=== PATIENT | female | born 1945 | race Caucasian/White ===

== ENCOUNTER 2019-12-02 12:06 | Inpatient (IN) | payer BC, MEDICARE ==
--- NOTE | 2019-12-02 13:19 | XR ---
EXAMINATION TYPE: XR chest 1V portable DATE OF EXAM: 12/02/2019 COMPARISON: NONE HISTORY: Pain and swelling with possible infection TECHNIQUE: Single frontal view of the chest is obtained. FINDINGS: Interstitium is coarsened. Arthropathy of the shoulders. Biapical pleural thickening. Hype rtrophic and degenerative change of the spine. No consolidation. No sizable pleural effusion or pneum othorax. Hyperinflation compatible COPD IMPRESSION: Coarsened interstitium suspect is related to chronic interstitial pulmonary lung disease such as fibrosis. Correlate clinically to exclude interstitial pneumonitis or bronchitis.
[2019-12-02 13:36] LABS: Basophils # (A) 0.1 k/uL (0-0.2); Basophils % (A) 0 %; Eosinophils # (A) 0.3 k/uL (0-0.7); Eosinophils % (A) 2 %; HCT 46.3 % (34.0-46.0); Lymphocytes # (A) 2.6 k/uL (1.0-4.8); Lymphocytes % (A) 20 %; MCH 29.7 pg (25.0-35.0); MCHC 32.5 g/dL (31.0-37.0); MCV 91.7 fL (80.0-100.0); Mean Platelet Volume 8.1; Monocytes # (A) 0.6 k/uL (0-1.0); Monocytes % (A) 5 %; Neutrophils # (A) 9.1 k/uL (1.3-7.7); Neutrophils % (A) 71 %; Platelet Count 239 k/uL (150-450); RBC 5.05 m/uL (3.80-5.40); RDW 13.1 % (11.5-15.5); WBC 12.8 k/uL (3.8-10.6)
[2019-12-02 13:37] LABS: Appearance,Urine Clear (Clear); Bacteria,Urine Occasional /hpf; Bilirubin,Urine Negative (Negative); Blood,Urine Trace (Negative); Color,Urine Light Yellow; Glucose,Urine (UA) 3+ (Negative); Ketones,Urine Negative (Negative); Leukocyte Esterase,Urine Negative (Negative); Nitrite,Urine Negative (Negative); PH, Urine 6.5 (5.0-8.0); Protein,Urine 2+ (Negative); RBC,Urine 1 /hpf (0-5); Specific Gravity,Urine 1.008 (1.001-1.035); Squamous Epithelial Cell,Urine 1 /hpf (0-4); Urobilinogen,Urine <2.0 mg/dL (<2.0); WBC,Urine 1 /hpf (0-5)
--- NOTE | 2019-12-02 13:38 | ED ---
General Adult HPI - General Chief complaint: Wound/Laceration Stated complaint: L Toe Infection Time Seen by Provider: 12/02/19 12:56 Source: patient Mode of arrival: wheelchair Limitations: no limitations - History of Present Illness Initial comments: Dictation was produced using [employer] dictation software. please excuse any grammatical, word or spelling errors. Chief Complaint: 74-year-old female sent in by occupational therapist rehab manager for left foot i nfection. History of Present Illness: Patient is a 4-year-old female she was advised by her occupational therapist rehab manager today. She is told that she was having a draining wound to her left great toe consent to the emergency department for concerns of infection. Patient states she's been having increased pain to her left foot. Patient denies ever been diagnosed with vascular disease. She does have a history of diabetes. Patient denies any shortness breath, chest pain or abdominal pain. No nausea or vomiting. He has any constitutional symptoms. Patient complains of pain especially to her left great toe extending up to her mid calf region. She denies any numbness and paresthesias to the extremities. The ROS documented in this emergency department record has been reviewed and confirmed by me. Those systems with pertinent positive or negative responses have been documented in the HPI. All other systems are other negative and/or noncontributory. PHYSICAL EXAM: General Impression: Alert and oriented x3, not in acute distress HEENT: Normocephalic atraumatic, extra-ocular movements intact, pupils equal and reactive to light bilaterally, mucous membranes moist. Cardiovascular: Heart regular rate and rhythm, S1&S2 audible, no murmurs, rubs or gallops Chest: Lungs clear to auscultation bilaterally, no rhonchi, no wheeze, no rales Abdomen: Bowel sounds present, abdomen soft, non-tender, non-distended, no organomegaly Musculoskeletal: Pulses present and equal in all extremities, no peripheral edema Motor: no focal deficits noted Neurological: CN II-XII grossly intact, no focal motor or sensory deficits noted Left foot: No petechial diarrhea, very weakly palpable DP and PT pulse. Multip le callouses. There is a 0.5 x 0.5 cm wound to the medial left great toe with very slight drainage. Her whole foot is tender to palpation. Skin: Intact with no visualized rashes Psych: Normal affect and mood ED course: 74-year-old female presents with left foot pain. She sent in by her occupational therapist rehab manager for concerns of worsening infection. As upon arrival shows heart rate of 11, respiratory signs within acceptable limits. Laboratory evaluation obtained. Leukocytosis 12.8. Metabolic panel is within acceptable limits. Urinalysis shows 3+ glucose. Chest x-ray shows no acute processes. Radiology made a comment on coarse interstitium. Patient does not have any respiratory symptoms today. Further x-ray was obtained concerning for osteomyelitis. Patient started on vancomycin and cefepime. Patient be admitted to Dr. Ortega with consultation to infectious disease and vascular surgery. P atient agreeable to disposition. EKG interpretation: Ventricular rate 96, normal sinus rhythm, SC interval 140, QRS 92, QTC 480. No SC prolongation, no QTC prolongation, no ST or T-wave changes noted. Overall, this EKG is unremarkable - Related Data Home Medications Medication Instructions Recorded Confirmed Lisinopril [Zestril] 10 mg PO DAILY 04/25/16 12/02/19 Insulin Glargine,Hum.rec.anlog 15 units SQ DAILY 12/02/19 12/02/19 [Toukaitlin Solostar] Allergies Allergy/AdvReac Type Severity Reaction Status Date / Time Penicillins Allergy Unknown Verified 12/02/19 14:24 Review of Systems ROS Statement: Those systems with pertinent positive or pertinent negative responses have been documented in the HPI. ROS Other: All systems not noted in ROS Statement are negative. Past Medical History Past Medical History: CVA/TIA, Diabetes Mellitus, Hyperlipidemia, Hypertension Additional Past Medical History / Comment(s): COLITIS History of Any Multi-Drug Resistant Organisms: None Reported Past Surgical History: Cholecystectomy, Hysterectomy, Tonsillectomy Additional Past Surgical History / Comment(s): Left femoral stent. Past Psychological History: No Psychological Hx Reported Smoking Status: Current every day smoker Past Alcohol Use History: None Reported Past Drug Use History: Marijuana General Exam Limitations: no limitations Course Vital Signs 12/02/19 12:29 Temperature 98.1 F Pulse Rate 101 H Respiratory 16 Rate Blood Pressure 174/82 O2 Sat by Pulse 97 Oximetry Medical Decision Making - Lab Data Result diagrams: 12/02/19 13:20 12/02/19 13:20 Lab Results 12/02/19 12/02/19 12/02/19 Range/Units 13:20 13:20 13:20 WBC 12.8 H (3.8-10.6) k/uL RBC 5.05 (3.80-5.40) m/uL Hgb 15.0 (11.4-16.0) gm/dL Hct 46.3 H (34.0-46.0) % MCV 91.7 (80.0-100.0) fL MCH 29.7 (25.0-35.0) pg MCHC 32.5 (31.0-37.0) g/dL RDW 13.1 (11.5-15.5) % Plt Count 239 (150-450) k/uL Neutrophils % 71 % Lymphocytes % 20 % Monocytes % 5 % Eosinophils % 2 % Basophils % 0 % Neutrophils # 9.1 H (1.3-7.7) k/uL Lymphocytes # 2.6 (1.0-4.8) k/uL Monocytes # 0.6 (0-1.0) k/uL Eosinophils # 0.3 (0-0.7) k/uL Basophils # 0.1 (0-0.2) k/uL Sodium 135 L (137-145) mmol/L Potassium 4.2 (3.5-5.1) mmol/L Chloride 100 (98-107) mmol/L Carbon Dioxide 29 (22-30) mmol/L Anion Gap 6 mmol/L BUN 26 H (7-17) mg/dL Creatinine 0.88 (0.52-1.04) mg/dL Est GFR (CKD-EPI)AfAm 76 (>60 ml/min/1.73 sqM) Est GFR (CKD-EPI)NonAf 66 (>60 ml/min/1.73 sqM) Glucose 273 H (74-99) mg/dL Calcium 9.4 (8.4-10.2) mg/dL Urine Color Light Yellow Urine Appearance Clear (Clear) Urine pH 6.5 (5.0-8.0) Ur Specific [place] 1.008 (1.001-1.035) Urine Protein 2+ H (Negative) Urine Glucose (UA) 3+ H (Negative) Urine Ketones Negative (Negative) Urine Blood Trace H (Negative) Urine Nitrite Negative (Negative) Urine Bilirubin Negative (Negative) Urine Urobilinogen <2.0 (<2.0) mg/dL Ur Leukocyte Esterase Negative (Negative) Urine RBC 1 (0-5) /hpf Urine WBC 1 (0-5) /hpf Ur Squamous Epith Cells 1 (0-4) /hpf Urine Bacteria Occasional H (None) /hpf Disposition Clinical Impression: Osteomyelitis Disposition: ADMITTED IP TO THIS HOSP Condition: Fair Referrals: Héctor Garcia MD [Primary Care Provider] - 1-2 days Decision Time: 14:53
[2019-12-02 13:47] LABS: Calcium 9.4 mg/dL (8.4-10.2); Potassium 4.2 mmol/L (3.5-5.1)
--- NOTE | 2019-12-02 14:36 | XR ---
EXAMINATION TYPE: XR foot complete LT DATE OF EXAM: 12/02/2019 COMPARISON: NONE HISTORY: Pain TECHNIQUE: Three views are submitted. FINDINGS: The osseous structures are intact. There is no acute fracture or dislocation. There is severe arth ropathy of the first MTP. Irregularity of the cortex of the distal phalanx first digit. Adjacent soft tissue edema and irregularity correlate for ulceration. Arthropathy of the remaining MTP joints note d. Diffuse osteopenia. Soft tissue edema noted. IMPRESSION: 1. Correlate for osteomyelitis tuft distal phalanx first digit.
[2019-12-02] MEDS ORDERED: VANCOMYCIN IV PER PHARMACY 1 EACH MISC MISCELLANE PRN (14:50)
[2019-12-02] MEDS ORDERED: CEFEPIME 2 GM in SODIUM CHLORIDE 0.9% 100 ML IVPB STA (14:51)
[2019-12-02] MEDS ORDERED: VANCOMYCIN 1,250 MG in SODIUM CHLORIDE 0.9% 250 ML IVPB STA (14:58)
[2019-12-02] MEDS ORDERED: NALOXONE 0.4 MG/ML 1 ML VIAL IV PRN (15:43)
[2019-12-02] MEDS ORDERED: MORPHINE SULFATE 4 MG/ML SYRINGE IV PRN (15:43)
[2019-12-02] MEDS ORDERED: oxyCODONE-APAP 5-325MG 1 EACH TAB PO PRN (15:43)
[2019-12-02] MEDS ORDERED: INSULIN ASPART (NovoLOG) 100 UNIT/ML VIAL SQ SCH ×2 (16:00→17:30)
--- NOTE | 2019-12-02 16:36 | P.HPIM ---
History of Present Illness H&P Date: 12/02/19 Chief Complaint: Wound on the left big toe History of presenting complaint: This is a pleasant 74-year-old patient of Dr. Garcia. Chronic stable medical conditions include diabetes, hyperlipidemia, hypertension and long-standing smoker. Patient has been going to a metal model builder for her nails. Patient also discussed significant peripheral neuropathy. Patient noticed the wound on the left big toe for last few days. Started to drain. When down to the metal model builder. [facility]. The wound is somewhat painful. The feet are also dry. Patient has known to have a prior attempt to stent the lower extremity by the surgeon out of the area. Patient is accompanied by her . Continues to smoke. Review of systems: GEN.: Tired EYES: None HEENT: Hard of hearing NECK: None RESPIRATORY: Some shortness present during CARDIOVASCULAR: None GASTROINTESTINAL: Constipation] GENITOURINARY: None MUSCULOSKELETAL: Joint pains LYMPHATICS: None HEMATOLOGICAL: None PSYCHIATRY: But anxious] NEUROLOGICAL: Painful peripheral neuropathy Past medical history to include: CVA, diabetes, hyperlipidemia, hypertension, colitis, peripheral neuropathy Social history: Lives with her . Was an alcoholic in the past. Smokes over a pack a day for over 55 years. 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 Smokes marijuana Physical examination: VITAL SIGNS: 98.1, 101, 16, blood pressure 174/82, 97% on room air GENERAL: BMI 22.5, laying in bed tired a bit anxious. EYES: Pupils equal. Conjunctiva normal. HEENT: External appearance of nose and ears normal, oral cavity grossly normal. NECK: JVD not raised; masses not palpable. HEART: First and second heart sounds are normal; no edema. LUNGS: Respiratory rate increased, decreased breaths on chronic suppression wheezing. ABDOMEN: Soft, nontender, liver spleen not palpable, no masses palpable. PSYCH: Alert and oriented x3; mood and affect anxiousl. EXTREMITIES: There is dryness of the skin below the knee down to the foot. Some redness to the left leg down to the toes. Wound on the medial and distal aspect of the left big toe with some drainage and some necrotic tissue at the base. Very dysmorphic nails. Left leg is somewhat swollen compared to the right PULSES: Unable to feel dorsalis pedis on both the feet NEUROLOGICAL: Cranial nerves grossly intact; no facial asymmetry, power and sensation grossly intact. LYMPHATICS: No lymph nodes palpable in the axilla and neck INVESTIGATIONS, reviewed in the clinical context: White count 12.8 hemoglobin 15 platelets 239 potassium 4.2 creatinine 0.88 EKG tracing personally reviewed by me-normal sinus rhythm with some poor R-wave progression in anterior leads Left foot x-ray-shows also born in the distal phalanx distally Chest x-ray film personally reviewed by me-shows very prominent interstitium Assessment: -Strongly suspect left foot big toe distal phalanx acute osteomyelitis with involvement of the bone on the x-ray and drainage -Peripheral arterial disease with a prior attempt a stent in the past -COPD exacerbation in a current smoker -Chronic nicotine dependence patient's cigarette smoker -Consider pulmonary fibrosis -Swelling of the left leg compared to the right lower DVT -Onychomycosis on both feet the toenails, but dysmorphic nails -Acute cellulitis of the left lower extremity distal to the knee -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 We will also add NSAIDs and Tylenol Franta from [facility]. Control. Doppler ultrasound will be done to rule out a DVT. Wound culture for Gram stain will be done from the left foot wound. Consultations be made to infectious disease and vascular surgeon. Lovenox for DVT prophylaxis. We'll also add bronchodilators steroids for the COPD. We'll order a high resolution computed tomography scan of the chest to rule out pulmonary fibrosis. Care was discussed with the patient and at the bedside. Questions were answered. Past Medical History Past Medical History: CVA/TIA, Diabetes Mellitus, Hyperlipidemia, Hypertension Additional Past Medical History / Comment(s): COLITIS History of Any Multi-Drug Resistant Organisms: None Reported Past Surgical History: Cholecystectomy, Hysterectomy, Tonsillectomy Additional Past Surgical History / Comment(s): Left femoral stent. Past Psychological History: No Psychological Hx Reported Smoking Status: Current every day smoker Past Alcohol Use History: None Reported Past Drug Use History: Marijuana Medications and Allergies Home Medications Medication Instructions Recorded Confirmed Type Lisinopril [Zestril] 10 mg PO DAILY 04/25/16 12/02/19 History Insulin Glargine,Hum.rec.anlog 15 units SQ DAILY 12/02/19 12/02/19 History [Toukaitlin Solostar] Allergies Allergy/AdvReac Type Severity Reaction Status Date / Time Penicillins Allergy Unknown Verified 12/02/19 14:24 Physical Exam Vitals: Vital Signs Temp Pulse Resp BP Pulse Ox 12/02/19 12:29 98.1 F 101 H 16 174/82 97 Intake and Output 12/02/19 12/02/19 12/02/19 06:59 14:59 22:59 Other: Weight 61.235 kg Results CBC & Chem 7: 12/02/19 13:20 12/02/19 13:20 Labs: Abnormal Lab Results - Last 24 Hours (Table) 12/02/19 12/02/19 12/02/19 Range/Units 13:20 13:20 13:20 WBC 12.8 H (3.8-10.6) k/uL Hct 46.3 H (34.0-46.0) % Neutrophils # 9.1 H (1.3-7.7) k/uL Sodium 135 L (137-145) mmol/L BUN 26 H (7-17) mg/dL Glucose 273 H (74-99) mg/dL Urine Protein 2+ H (Negative) Urine Glucose (UA) 3+ H (Negative) Urine Blood Trace H (Negative) Urine Bacteria Occasional H (None) /hpf
--- NOTE | 2019-12-02 16:55 | US ---
EXAMINATION TYPE: US venous doppler duplex LE LT DATE OF EXAM: 12/02/2019 4:40 PM COMPARISON: NONE CLINICAL HISTORY: Rule out DVT. Patient states having leg pain and cramping. Not on blood thinners. No hx DVT. SIDE PERFORMED: Left TECHNIQUE: The lower extremity deep venous system is examined utilizing real time linear array sonog maximilian with graded compression, doppler sonography and color-flow sonography. VESSELS IMAGED: External Iliac Vein (EIV) Common Femoral Vein Deep Femoral Vein Greater Saphenous Vein * Femoral Vein Popliteal Vein Small Saphenous Vein * Proximal Calf Veins (* superficial vessels) Left Leg: Negative for DVT. Arterial shadowing visualized. Grayscale, color doppler, spectral doppler imaging performed of the deep veins of the left lower extr emity. There is normal flow, compressibility, vascular waveforms. IMPRESSION: No ultrasound evidence for acute DVT in the left lower extremity.
[2019-12-02] MEDS: SODIUM CHLORIDE 0.9% 1,000 ML IV SCH (17:09)
[2019-12-02] MEDS ORDERED: LABETALOL 5 MG/ML VIAL MDV IVP STA (17:17)
[2019-12-02 18:05] LABS: Glucose,Whole Blood 225 mg/dL (75-99)
[2019-12-02] MEDS: ENOXAPARIN 40 MG/0.4 ML SYRINGE SQ SCH (18:37)
[2019-12-02] MEDS: NICOTINE 21MG/24HR PATCH TRANSDERM SCH (19:52)
[2019-12-02] MEDS: IPRATROPIUM-ALBUTEROL 3 ML NEB INHALATION SCH (20:04)
[2019-12-02] MEDS: NAPROXEN 250 MG TAB PO SCH (20:20)
[2019-12-02 20:30] LABS: Glucose,Whole Blood 246 mg/dL (75-99)
[2019-12-02] MEDS: FAMOTIDINE 20 MG TAB PO SCH (21:02)
[2019-12-02] MEDS: INSULIN ASPART (NovoLOG) 100 UNIT/ML VIAL SQ SCH (21:02)
--- NOTE | 2019-12-02 22:02 | CT ---
EXAMINATION TYPE: CT chest wo con DATE OF EXAM: 12/02/2019 COMPARISON: Radiograph 12/02/2019 HISTORY: Possible pulmonary fibrosis. CT DLP: 470.7 mGycm. Automated Exposure Control for Dose Reduction was Utilized. TECHNIQUE: Both supine and prone end-inspiratory CT scan chest sequences were obtained without IV co ntrast. FINDINGS: AIRWAYS: The tracheobronchial tree is patent. LUNGS: The lungs are grossly clear, there is no concerning parenchymal mass or nodule identified. Kieran trilobular emphysematous changes are noted, consistent with emphysema. PLEURAL SPACES: There is no pleural effusion or pneumothorax seen. MEDIASTINUM: Mild cardiomegaly with no pericardial effusion. Prominent left and right coronary calcif ications. No adenopathy. There are no definitive greater than 1 cm hilar or mediastinal lymph nodes. No cardiomegaly or pericardial effusion is seen. OTHER: No acute skeletal findings. No incidental soft tissue findings. IMPRESSION: No acute process.
[2019-12-02] MEDS: ACETAMINOPHEN TAB 325 MG TAB PO PRN (22:44)
[2019-12-03] MEDS: VANCOMYCIN 1,250 MG in SODIUM CHLORIDE 0.9% 250 ML IVPB SCH ×2 (05:20→17:21)
[2019-12-03 07:06] LABS: Glucose,Whole Blood 233 mg/dL (75-99)
[2019-12-03] MEDS: IPRATROPIUM-ALBUTEROL 3 ML NEB INHALATION SCH ×4 (07:49→20:27)
[2019-12-03] MEDS: LISINOPRIL 10 MG TAB PO SCH (07:51)
[2019-12-03] MEDS: FAMOTIDINE 20 MG TAB PO SCH ×2 (07:52→20:45)
[2019-12-03] MEDS: NICOTINE 21MG/24HR PATCH TRANSDERM SCH (07:52)
[2019-12-03] MEDS: NAPROXEN 250 MG TAB PO SCH ×2 (07:52→20:45)
[2019-12-03] MEDS: INSULIN ASPART (NovoLOG) 100 UNIT/ML VIAL SQ SCH ×4 (07:53→20:46)
[2019-12-03] MEDS: INSULIN DETEMIR (LEVEMIR) 100 UNIT/ML SYR SQ SCH (07:53)
[2019-12-03] MEDS: ENOXAPARIN 40 MG/0.4 ML SYRINGE SQ SCH (07:53)
[2019-12-03 08:38] LABS: HCT 42.4 % (34.0-46.0); MCH 30.2 pg (25.0-35.0); MCV 91.6 fL (80.0-100.0); Mean Platelet Volume 8.1; Platelet Count 247 k/uL (150-450); RBC 4.63 m/uL (3.80-5.40); RDW 13.2 % (11.5-15.5); WBC 9.2 k/uL (3.8-10.6)
--- NOTE | 2019-12-03 08:46 | CONS ---
CONSULTATION DATE OF SERVICE: 12/02/2019 REASON FOR CONSULTATION: Abnormal x-ray with question of osteomyelitis. HISTORY OF PRESENT ILLNESS: The patient is a 74-year-old female who presented to the ER by advice of the crack off person with concern for a grade 2 infection. Apparently, the patient did have a wound on the medial aspect of the right big toe that apparently started 2 weeks ago. Patient denies any history of trauma or any new ill-fitting shoes. The patient did have a pain to the left big toe with associated swelling and redness that has spread to the left lower leg. The patient describes the pain to the left foot to be throbbing, almost 10/10 in severity. The patient denies significant purulent drainage from her left big toe. Patient denies any high-grade fever or chills. With these symptoms, the patient has been evaluated by the ER physician. On arrival to the ER, the patient has been afebrile. The patient did have elevated white count of 12.8, 72. CRP has been 5, urine has been negative. Patient did have x-rays of the foot completed that did show severe arthropathy of the 4th MTP joint adjacent soft tissue edema, an irregularity correlated for ulceration off the distal phalanx first digit, possible osteomyelitis. The patient has been admitted to the hospital. She has been started on vancomycin. Infectious Disease was consulted for further recommendations of antibiotic therapy. Patient did not recall any history of recent antibiotic exposure. REVIEW OF SYSTEMS: Positive points have been mentioned in HPI. Other systems are negative. PAST MEDICAL HISTORY: CVA, TIA, diabetes mellitus, hypertension, hyperlipidemia, colitis. PAST SURGICAL HISTORY: Cholecystectomy, hysterectomy, tonsillectomy. SOCIAL HISTORY: Not every day smoker, occasional marijuana use, no drinking. FAMILY HISTORY: No pertinent findings noticed. ALLERGIES: PENICILLIN with a rash. No history anaphylaxis. MEDICATIONS: Patient is currently on vancomycin, , Naproxen, Zestril, Levemir, NovoLog, Pepcid, DuoNeb, and Tylenol. PHYSICAL EXAMINATION: On examination, her blood pressure is 157/84 with a pulse of 94, temperature 98.2, she is 98% on room air. General description is an elderly female, up in the bed in no distress. No tachypnea or accessory muscle for respiration use. HEENT: Examination shows no pallor or scleral icterus. Oral mucosa is dry. No pharyngeal erythema or pressure. NECK: Trachea central, no thyromegaly. LUNGS: Unlabored breathing, decreased breath sounds at the bases. No wheeze or crackles. HEART: S1, S2. Regular rate and rhythm. ABDOMEN: Soft, no tenderness. No guarding or rigidity. EXTREMITIES: Left big toe with ulceration, more of a dry callus on the medial aspect which is tender and warm to touch with some erythema to the left lower leg. No drainage was noted. NEUROLOGICAL: Patient is awake, alert, oriented x3. LABS: Hemoglobin 15, white count of 12.8 with a BUN of 27, creatinine 0.88. Blood culture has been normal. DIAGNOSTIC IMPRESSION AND PLAN: Patient admitted to the hospital with pain to the left big toe in this patient who did have swelling and redness extending to the left leg with abnormal x-ray suspicious for osteomyelitis in this patient who did have a history of underlying diabetes as well as possible PED in view of significant history of smoking, could be a gram-positive pathogen. Underlying gram-negative pathogen no entirely excluded. PLAN: 1. Will wait for the vascular surgery evaluation for possible debridement of the wound and deep cultures. 2. Vancomycin, pharmacy to dose, target of 15 while watching her kidney function very closely. 3. We will follow on clinical condition and culture to further adjust medication if needed. Thank you for this consultation. Will follow this patient along with you. MMODL / IJN: [id number] /
[2019-12-03 08:49] LABS: Calcium 8.8 mg/dL (8.4-10.2)
[2019-12-03 11:34] LABS: Glucose,Whole Blood 239 mg/dL (75-99)
[2019-12-03 16:56] LABS: Glucose,Whole Blood 161 mg/dL (75-99)
--- NOTE | 2019-12-03 17:03 | P.PN ---
Progress Note - Text Progress Note Date: 12/03/19 Chief Complaint: Wound on the left big toe History of presenting complaint: This is a pleasant 74-year-old patient of Dr. Garcia. Chronic stable medical conditions include diabetes, hyperlipidemia, hypertension and long-standing smoker. Patient has been going to a cloth cutting machine operator for her nails. Patient also discussed significant peripheral neuropathy. Patient noticed the wound on the left big toe for last few days. Started to drain. When down to the cloth cutting machine operator. [facility] in. The wound is somewhat painful. The feet are also dry. Patient has known to have a prior attempt to stent the lower extremity by the surgeon out of the area. Patient is accompanied by her . Continues to smoke. Admitted with possible left big toe wound, cellulitis, COPD exacerbation. Started bronchodilators, antibiotics. Computed tomography scan of the chest negative for pulmonary fibrosis Today-patient breathing is a bit better. Pain control. Did tolerate some diet. Review of systems: Was done for constitutional, cardiovascular, GI, pulmonary. relevant finding as above Active Medications Acetaminophen (Tylenol Tab) 650 mg PO Q6HR PRN PRN Reason: Fever and/ or Pain Last Admin: 12/02/19 22:44 Dose: 650 mg Documented by: Albuterol/Ipratropium (Duoneb 0.5 Mg-3 Mg/3 Ml Soln) 3 ml INHALATION RT-QID [facility] Last Admin: 12/03/19 11:06 Dose: 3 ml Documented by: Enoxaparin Sodium (Lovenox) 40 mg SQ DAILY [facility] Last Admin: 12/03/19 07:53 Dose: 40 mg Documented by: Famotidine (Pepcid) 20 mg PO BID [facility] Last Admin: 12/03/19 07:52 Dose: 20 mg Documented by: Sodium Chloride (Saline 0.9%) 1,000 mls @ 20 mls/hr IV .Q24H [facility] Last Admin: 12/02/19 17:09 Dose: 20 mls/hr Documented by: Vancomycin HCl 1,250 mg/ (Sodium Chloride) 250 mls @ 125 mls/hr IVPB Q12H [facility] Last Admin: 12/03/19 05:20 Dose: 125 mls/hr Documented by: Insulin Aspart (Novolog) 0 unit SQ ACHS [facility]; Protocol Last Admin: 12/03/19 11:55 Dose: 3 unit Documented by: Insulin Detemir (Levemir) 15 unit SQ DAILY@0700 [facility] Last Admin: 12/03/19 07:53 Dose: 15 unit Documented by: Lisinopril (Zestril) 10 mg PO DAILY [facility] Last Admin: 12/03/19 07:51 Dose: 10 mg Documented by: Miscellaneous Information (Vancomycin Trough Due) 0 each MISCELLANE DIRECTED ONE Stop: 12/04/19 17:01 Naproxen (Naprosyn) 250 mg PO BID [facility] Last Admin: 12/03/19 07:52 Dose: 250 mg Documented by: Nicotine (Habitrol 21mg/24hr Patch) 1 patch TRANSDERM DAILY [facility] Last Admin: 12/03/19 07:52 Dose: Not Given Documented by: Physical examination: VITAL SIGNS: 98.6, 82, 18, repeated blood pressure checking GENERAL: Sitting at the edge of the bed EYES: Pupils equal. Conjunctiva normal. HEENT: External appearance of nose and ears normal, oral cavity grossly normal. NECK: JVD not raised; masses not palpable. HEART: First and second heart sounds are normal; no edema. LUNGS: Respiratory rate increased, decreased breaths on chronic suppression wheezing. ABDOMEN: Soft, nontender, liver spleen not palpable, no masses palpable. PSYCH: Alert and oriented x3; mood and affect anxiousl. EXTREMITIES: There is dryness of the skin below the knee down to the foot. Some redness to the left leg down to the toes. Wound on the medial and distal aspect of the left big toe with some drainage and some necrotic tissue at the base. Very dysmorphic nails. Left leg is somewhat swollen compared to the right PULSES: Unable to feel dorsalis pedis on both the feet INVESTIGATIONS, reviewed in the clinical context: White count 9.2 hemoglobin 14 potassium [address] chest-negative for pulmonary fibrosis DVT-left back negative White count 12.8 hemoglobin 15 platelets 239 potassium 4.2 creatinine 0.88 EKG tracing personally reviewed by me-normal sinus rhythm with some poor R-wave progression in anterior leads Left foot x-ray-shows also born in the distal phalanx distally Chest x-ray film personally reviewed by me-shows very prominent interstitium Assessment: -Strongly suspect left foot big toe distal phalanx acute osteomyelitis with involvement of the bone on the x-ray and drainage-workup in place with ID and restless history. 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 Care was discussed with the patient. Follow with ID and vascular surgery.
[2019-12-03] MEDS: ACETAMINOPHEN TAB 325 MG TAB PO PRN (17:25)
[2019-12-03] MEDS: SODIUM CHLORIDE 0.9% 1,000 ML IV SCH (20:09)
[2019-12-03 20:22] LABS: Glucose,Whole Blood 235 mg/dL (75-99)
--- NOTE | 2019-12-03 23:22 | PN ---
PROGRESS NOTE DATE OF SERVICE: 12/03/2019. REASON FOR FOLLOWUP: Left big toe wound and a question of osteomyelitis. INTERVAL HISTORY: The patient is currently afebrile, has been breathing comfortably. Still complaining of pain to the left big toe. No worsening. No chest pain. No abdominal pain or diarrhea. PHYSICAL EXAMINATION: Blood pressure is 117/81 with a pulse of 90, temperature is 97.8. He is 100% on room air. General description is an elderly female lying in bed in no distress. Respiratory system: Unlabored breathing, clear to auscultation anteriorly. Heart S1, S2. Regular rate and rhythm. Abdomen soft, no tenderness. Left big toe and leg swelling has slightly decreased. LABS: Hemoglobin 14. White count 9.2. BUN of 24, creatinine 0.97. Blood culture has been negative. DIAGNOSTIC IMPRESSION AND PLAN: Patient with left big toe wound with secondary cellulitis and a question of osteomyelitis waiting for the vascular surgery evaluation and possible debridement and deep cultures. Currently covered with vancomycin to continue while monitoring her kidney function closely. Continue supportive care. MMODL / IJN: [id number] /
[2019-12-04] MEDS: ACETAMINOPHEN TAB 325 MG TAB PO PRN ×3 (00:33→21:16)
[2019-12-04] MEDS: VANCOMYCIN 1,250 MG in SODIUM CHLORIDE 0.9% 250 ML IVPB SCH ×2 (05:24→17:41)
[2019-12-04 07:13] LABS: Glucose,Whole Blood 200 mg/dL (75-99)
[2019-12-04] MEDS: IPRATROPIUM-ALBUTEROL 3 ML NEB INHALATION SCH ×4 (07:59→20:48)
[2019-12-04] MEDS: LISINOPRIL 10 MG TAB PO SCH (08:16)
[2019-12-04] MEDS: FAMOTIDINE 20 MG TAB PO SCH ×2 (08:16→21:15)
[2019-12-04] MEDS: ENOXAPARIN 40 MG/0.4 ML SYRINGE SQ SCH (08:17)
[2019-12-04] MEDS: NICOTINE 21MG/24HR PATCH TRANSDERM SCH ×2 (08:17→08:21)
[2019-12-04] MEDS: NAPROXEN 250 MG TAB PO SCH ×2 (08:17→21:15)
[2019-12-04] MEDS: INSULIN ASPART (NovoLOG) 100 UNIT/ML VIAL SQ SCH ×4 (08:18→21:16)
[2019-12-04] MEDS: INSULIN DETEMIR (LEVEMIR) 100 UNIT/ML SYR SQ SCH (08:18)
[2019-12-04 11:39] LABS: Glucose,Whole Blood 219 mg/dL (75-99)
--- NOTE | 2019-12-04 15:45 | CONS ---
CONSULTATION This is a 74-year-old white female. She was seen on consult for left foot big toe. There is a callus formation noted for a long time. Patient had some x-rays of the foot suggestive of osteomyelitis. There is no drainage or redness noted. The patient's medical history includes history of diabetes, type 2, history of peripheral vascular disease. On examination, brachial pulses are present. Femorals are 1+. PT, DP not palpable. Patient has left big toe callus formation for a long period of time. No discharge or redness noted. PLAN: We have been using Medihoney gel and IV antibiotic. The patient had a workup done with CT angiography that was done outside the hospital. We will continue with IV antibiotic and local wound care. If the patient goes home, she will follow up in the office for further evaluation. At this point, there is no role for major surgical intervention. The patient has chronic vascular occlusive disease. MMODL / IJN: [id number] /
[2019-12-04 16:34] LABS: Glucose,Whole Blood 203 mg/dL (75-99)
[2019-12-04] MEDS ORDERED: VANCOMYCIN TROUGH DUE 1 EACH MISC MISCELLANE ONE (17:00)
--- NOTE | 2019-12-04 17:12 | PN ---
PROGRESS NOTE DATE OF SERVICE: 12/04/2019 REASON FOR FOLLOWUP: Left big toe cellulitis and a question of osteomyelitis. INTERVAL HISTORY: The patient are currently afebrile. She has been breathing comfortably. The patient denies any worsening pain to the left big toe. No chest pain. No abdominal pain. No diarrhea. The patient is constipated; no bowel movement for the last few days. PHYSICAL EXAMINATION: Blood pressure 184/83 with a pulse of 94, temperature 98.1. She is 97% on room air. General description is an elderly female up in the chair in no distress. Left foot is currently dressed up. No obvious drainage on the dressing. LABS: No new labs have been obtained today. Blood culture has been negative. DIAGNOSTIC IMPRESSION AND PLAN: Patient with left big toe wound with secondary cellulitis and concern for possible osteomyelitis. Vascular Surgery has seen the patient and is recommending CT angiography. Continue with the vancomycin at this point. Monitor clinical course closely. MMODL / IJN: [id number] /
[2019-12-04] MEDS: SODIUM CHLORIDE 0.9% 1,000 ML IV SCH (17:24)
[2019-12-04 21:10] LABS: Glucose,Whole Blood 192 mg/dL (75-99)
[2019-12-04 23:41] LABS: Hemoglobin A1C 11.6 % (4.0-6.0)
[2019-12-05] MEDS: VANCOMYCIN 1,250 MG in SODIUM CHLORIDE 0.9% 250 ML IVPB SCH ×2 (05:00→17:18)
[2019-12-05] MEDS: ACETAMINOPHEN TAB 325 MG TAB PO PRN ×2 (06:45→11:38)
[2019-12-05] MEDS: FAMOTIDINE 20 MG TAB PO SCH ×2 (06:45→20:56)
[2019-12-05] MEDS: ENOXAPARIN 40 MG/0.4 ML SYRINGE SQ SCH (06:46)
[2019-12-05] MEDS: LISINOPRIL 10 MG TAB PO SCH (06:46)
[2019-12-05] MEDS: NICOTINE 21MG/24HR PATCH TRANSDERM SCH (06:46)
[2019-12-05] MEDS: NAPROXEN 250 MG TAB PO SCH ×2 (06:46→20:56)
[2019-12-05 06:55] LABS: Glucose,Whole Blood 190 mg/dL (75-99)
[2019-12-05] MEDS: INSULIN DETEMIR (LEVEMIR) 100 UNIT/ML SYR SQ SCH (06:56)
[2019-12-05] MEDS: INSULIN ASPART (NovoLOG) 100 UNIT/ML VIAL SQ SCH ×4 (06:56→20:56)
[2019-12-05] MEDS: IPRATROPIUM-ALBUTEROL 3 ML NEB INHALATION SCH ×4 (07:58→20:13)
[2019-12-05] MEDS: SENNOSIDES 8.6 MG TAB PO PRN ×2 (10:30→21:14)
[2019-12-05 11:34] LABS: Glucose,Whole Blood 116 mg/dL (75-99)
[2019-12-05] MEDS: HYDROcodone/APAP 5-325MG 1 EACH TAB PO PRN ×2 (13:15→23:36)
[2019-12-05 14:06] VITALS: BMI 22.4
[2019-12-05 17:00] LABS: Glucose,Whole Blood 175 mg/dL (75-99)
[2019-12-05] MEDS: SODIUM CHLORIDE 0.9% 1,000 ML IV SCH (17:18)
[2019-12-05 20:53] LABS: Glucose,Whole Blood 170 mg/dL (75-99)
--- NOTE | 2019-12-05 23:39 | P.PN ---
Subjective Progress Note Date: 12/04/19 Principal diagnosis: Left great toe osteomyelitis This is a pleasant 74-year-old patient of Dr. Garcia. Chronic stable medical conditions include diabetes, hyperlipidemia, hypertension and long-standing smoker. Patient has been going to a intake rn for her nails. Patient also discussed significant peripheral neuropathy. Patient noticed the wound on the left big toe for last few days. Started to drain. When down to the intake rn. [facility]. The wound is somewhat painful. The feet are also dry. Patient has known to have a prior attempt to stent the lower extremity by the surgeon out of the area. Patient is accompanied by her . Continues to smoke. Admitted with possible left big toe wound, cellulitis, COPD exacerbation. Started bronchodilators, antibiotics. Computed tomography scan of the chest negative for pulmonary fibrosis 12 04 2019 -patient breathing is a bit better. Pain control. Did tolerate some diet. Patient is being continued on IV vancomycin. Vascular surgery and ID is following. No complaints of fever or chills. No nausea vomiting or abdominal pain. Objective - Vital Signs Vital signs: Vital Signs Temp 98.1 F 12/04/19 07:00 Pulse 95 12/04/19 11:45 Resp 18 12/04/19 08:00 BP 184/83 12/04/19 07:00 Pulse Ox 97 12/04/19 07:00 Intake & Output 12/03/19 12/04/19 12/04/19 18:59 06:59 18:59 Intake Total 1028 592 Balance 1028 592 Intake: Intake, IV Titration 140 Amount Sodium Chloride 0.9% 1, 140 000 ml @ 20 mls/hr IV . Q24H [facility] Rx#:[id number] Oral 888 592 Other: Voiding Method Toilet Toilet # Voids 4 1 - Exam GENERAL: Sitting at the edge of the bed EYES: Pupils equal. Conjunctiva normal. HEENT: External appearance of nose and ears normal, oral cavity grossly normal. NECK: JVD not raised; masses not palpable. HEART: First and second heart sounds are normal; no edema. LUNGS: Respiratory rate increased, decreased breaths on chronic suppression wheezing. ABDOMEN: Soft, nontender, liver spleen not palpable, no masses palpable. PSYCH: Alert and oriented x3; mood and affect anxiousl. EXTREMITIES: There is dryness of the skin below the knee down to the foot. Some redness to the left leg down to the toes. Wound on the medial and distal aspect of the left big toe with some drainage and some necrotic tissue at the base. Very dysmorphic nails. Left leg is somewhat swollen compared to the right PULSES: Unable to feel dorsalis pedis on both the feet - Labs CBC & Chem 7: 12/03/19 08:13 12/05/19 11:54 Labs: Abnormal Lab Results - Last 24 Hours (Table) 12/03/19 12/03/19 12/04/19 Range/Units 16:55 20:20 07:11 POC Glucose (mg/dL) 161 H 235 H 200 H (75-99) mg/dL 12/04/19 Range/Units 11:38 POC Glucose (mg/dL) 219 H (75-99) mg/dL Microbiology - Last 24 Hours (Table) 12/02/19 17:06 Blood Culture - Preliminary Blood No Growth after 24 hours Assessment and Plan Assessment: Assessment: -Strongly suspect left foot big toe distal phalanx acute osteomyelitis with involvement of the bone on the x-ray and drainage-workup in place with ID and restless history. 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 Care was discussed with the patient. Follow with ID and vascular surgery. Time with Patient: Greater than 30
--- NOTE | 2019-12-05 23:40 | P.PN ---
Subjective Progress Note Date: 12/05/19 Principal diagnosis: Left great toe osteomyelitis This is a pleasant 74-year-old patient of Dr. Garcia. Chronic stable medical conditions include diabetes, hyperlipidemia, hypertension and long-standing smoker. Patient has been going to a senior business process analyst for her nails. Patient also discussed significant peripheral neuropathy. Patient noticed the wound on the left big toe for last few days. Started to drain. When down to the senior business process analyst. [facility]. The wound is somewhat painful. The feet are also dry. Patient has known to have a prior attempt to stent the lower extremity by the surgeon out of the area. Patient is accompanied by her . Continues to smoke. Admitted with possible left big toe wound, cellulitis, COPD exacerbation. Started bronchodilators, antibiotics. Computed tomography scan of the chest negative for pulmonary fibrosis 12 04 2019 -patient breathing is a bit better. Pain control. Did tolerate some diet. Patient is being continued on IV vancomycin. Vascular surgery and ID is following. No complaints of fever or chills. No nausea vomiting or abdominal pain. 12/05/2019 A oglesby denied any complaints of chest pain or shortness of breath. Still complains of left foot pain. Patient also complaining of constipation and is requesting to softness. Currently being continued on antibiotics in form of IV vancomycin for left great toe osteomyelitis. Vascular surgery is planning for CT angiogram. Current medications reviewed. Objective - Vital Signs Vital signs: Vital Signs Temp 98.1 F 12/05/19 18:30 Pulse 78 12/05/19 18:30 Resp 14 12/05/19 18:30 BP 167/76 12/05/19 18:30 Pulse Ox 97 12/05/19 18:30 Intake & Output 12/05/19 12/05/19 12/06/19 06:59 18:59 06:59 Intake Total 100 60 Balance 100 60 Weight 61.235 kg Intake: Intake, IV Titration 60 Amount Sodium Chloride 0.9% 1, 60 000 ml @ 20 mls/hr IV . Q24H [facility] Rx#:[id number] Oral 100 Other: Voiding Method Toilet Toilet # Voids 1 2 3 - Exam GENERAL: Sitting at the edge of the bed EYES: Pupils equal. Conjunctiva normal. HEENT: External appearance of nose and ears normal, oral cavity grossly normal. NECK: JVD not raised; masses not palpable. HEART: First and second heart sounds are normal; no edema. LUNGS: Respiratory rate increased, decreased breaths on chronic suppression wheezing. ABDOMEN: Soft, nontender, liver spleen not palpable, no masses palpable. PSYCH: Alert and oriented x3; mood and affect anxiousl. EXTREMITIES: There is dryness of the skin below the knee down to the foot. Some redness to the left leg down to the toes. Wound on the medial and distal aspect of the left big toe with some drainage and some necrotic tissue at the base. Very dysmorphic nails. Left leg is somewhat swollen compared to the right PULSES: Unable to feel dorsalis pedis on both the feet - Labs CBC & Chem 7: 12/03/19 08:13 12/05/19 11:54 Labs: Abnormal Lab Results - Last 24 Hours (Table) 12/04/19 12/05/19 12/05/19 Range/Units 17:29 06:54 11:32 POC Glucose (mg/dL) 190 H 116 H (75-99) mg/dL Hemoglobin A1c 11.6 H (4.0-6.0) % 12/05/19 12/05/19 Range/Units 16:57 20:52 POC Glucose (mg/dL) 175 H 170 H (75-99) mg/dL Hemoglobin A1c (4.0-6.0) % Microbiology - Last 24 Hours (Table) 12/05/19 20:00 Wound Culture - Preliminary Toe - Left First 12/02/19 17:06 Blood Culture - Preliminary Blood No Growth after 72 hours Assessment and Plan Assessment: Assessment: -Strongly suspect left foot big toe distal phalanx acute osteomyelitis with involvement of the bone on the x-ray and drainage-workup in place with ID and restless history. 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 Care was discussed with the patient. Follow with ID and vascular surgery. Time with Patient: Greater than 30
[2019-12-06] MEDS: VANCOMYCIN 1,250 MG in SODIUM CHLORIDE 0.9% 250 ML IVPB SCH ×2 (05:08→17:20)
[2019-12-06 06:41] LABS: Glucose,Whole Blood 220 mg/dL (75-99)
[2019-12-06] MEDS: FAMOTIDINE 20 MG TAB PO SCH ×2 (07:29→22:58)
[2019-12-06] MEDS: NAPROXEN 250 MG TAB PO SCH ×2 (07:29→22:58)
[2019-12-06] MEDS: LISINOPRIL 10 MG TAB PO SCH (07:29)
[2019-12-06] MEDS: ENOXAPARIN 40 MG/0.4 ML SYRINGE SQ SCH (07:30)
[2019-12-06] MEDS: INSULIN ASPART (NovoLOG) 100 UNIT/ML VIAL SQ SCH ×4 (07:31→22:45)
[2019-12-06] MEDS: INSULIN DETEMIR (LEVEMIR) 100 UNIT/ML SYR SQ SCH (07:31)
[2019-12-06] MEDS: NICOTINE 21MG/24HR PATCH TRANSDERM SCH (07:31)
[2019-12-06] MEDS: IPRATROPIUM-ALBUTEROL 3 ML NEB INHALATION SCH ×4 (07:35→19:46)
--- NOTE | 2019-12-06 08:58 | PN ---
PROGRESS NOTE DATE IF SERVICE: 12/05/2019. REASON FOR FOLLOWUP: Left big toe wound and a question of osteomyelitis. INTERVAL HISTORY: The patient is currently afebrile. She has been breathing comfortably. The patient denies having any chest pain, cough, no abdominal pain and no symptoms of the left big toe. On examination, blood pressure 157/76 with pulse of 78, temperature 98.1, she is 97% on room air. General description is an elderly female, lying in bed in no distress. RESPIRATORY SYSTEM: Unlabored breathing, clear to auscultation anteriorly. HEART: S1, S2. Regular rate and rhythm. ABDOMEN: Soft, no tenderness. Examination of the big toe currently did have a small wound which was cleaned, cultures were obtained. LABS: Hemoglobin is 14, white count 9.2. Sedimentation rate is 22 and CRP was normal. DIAGNOSTIC IMPRESSION/PLAN: Patient with left big toe wound with concern for possible osteo on the basis of a foot x-ray; however, clinically not behaving as such as the patient's culture is 122 and CRP was normal. She did have a wound that has been cultured today, covered with vancomycin and discharged depending on culture report and clinical response. Continue supportive care. MMODL / IJN: [id number] /
[2019-12-06] MEDS: SENNOSIDES 8.6 MG TAB PO PRN (09:42)
[2019-12-06 12:01] LABS: Glucose,Whole Blood 112 mg/dL (75-99)
[2019-12-06] MEDS ORDERED: POLYETHYLENE GLYCOL 3350 17 GM POWD.PACK PO STA (14:31)
[2019-12-06 16:44] LABS: Glucose,Whole Blood 222 mg/dL (75-99)
[2019-12-06] MEDS: SODIUM CHLORIDE 0.9% 1,000 ML IV SCH (18:42)
[2019-12-06 20:36] LABS: Glucose,Whole Blood 94 mg/dL (75-99)
--- NOTE | 2019-12-06 22:53 | PN ---
PROGRESS NOTE DATE OF SERVICE: 12/06/2019 REASON FOR FOLLOWUP: Left big toe wound and cellulitis with a question of osteomyelitis. INTERVAL HISTORY: The patient is currently afebrile. She has been breathing comfortably. Denies having any chest pain or any cough. No abdominal pain or any worsening pain to the left big toe. PHYSICAL EXAMINATION: Blood pressure 195/75 with a pulse of 85, temperature 98.4. She is 98% on room air. General description is an elderly female up in the chair in no distress. RESPIRATORY SYSTEM: Unlabored breathing. Clear to auscultation. HEART: S1, S2. Regular rate and rhythm. ABDOMEN: Soft. No tenderness. Left big toe is currently dressed up. No obvious drainage on the dressing. LABS: Creatinine 0.92. Wound culture currently pending. Blood cultures have been negative. DIAGNOSTIC IMPRESSION AND PLAN: Patient with left big toe wound and cellulitis with concern for possible osteomyelitis; clinically not behaving as such. We will obtain a bone scan to rule out osteomyelitis. Continue vancomycin while waiting for the culture to finalize. Local wound care . Continue with supportive care. MMODL / IJN: [id number] /
[2019-12-07] MEDS: HYDROcodone/APAP 5-325MG 1 EACH TAB PO PRN ×2 (01:11→22:11)
[2019-12-07] MEDS ORDERED: VANCOMYCIN TROUGH DUE 1 EACH MISC MISCELLANE ONE (05:00)
[2019-12-07] MEDS: VANCOMYCIN 1,250 MG in SODIUM CHLORIDE 0.9% 250 ML IVPB SCH (06:11)
[2019-12-07] MEDS: ACETAMINOPHEN TAB 325 MG TAB PO PRN (06:12)
[2019-12-07 06:52] LABS: Glucose,Whole Blood 230 mg/dL (75-99)
[2019-12-07] MEDS: INSULIN DETEMIR (LEVEMIR) 100 UNIT/ML SYR SQ SCH (07:32)
[2019-12-07] MEDS: INSULIN ASPART (NovoLOG) 100 UNIT/ML VIAL SQ SCH ×4 (07:32→20:26)
[2019-12-07] MEDS: IPRATROPIUM-ALBUTEROL 3 ML NEB INHALATION SCH ×4 (07:58→19:38)
[2019-12-07] MEDS: NICOTINE 21MG/24HR PATCH TRANSDERM SCH (08:19)
[2019-12-07] MEDS: LISINOPRIL 10 MG TAB PO SCH (08:23)
[2019-12-07] MEDS: NAPROXEN 250 MG TAB PO SCH ×2 (08:23→20:45)
[2019-12-07] MEDS: FAMOTIDINE 20 MG TAB PO SCH ×2 (08:23→20:46)
[2019-12-07] MEDS: ENOXAPARIN 40 MG/0.4 ML SYRINGE SQ SCH (08:23)
[2019-12-07 11:38] LABS: Glucose,Whole Blood 118 mg/dL (75-99)
--- NOTE | 2019-12-07 13:14 | NM ---
EXAMINATION TYPE: NM bone 3 phase DATE OF EXAM: 12/07/2019 COMPARISON: Prior bone scan 04/28/2016, left foot 12/02/2019 HISTORY: Left big toe wound, question osteomyelitis Triple phase bone scintigraphy was performed following the injection of 21.8 mCi Tc 99m MDP. Immedia te images and 5.5 hours post injection images acquired. FINDINGS: Increased blood flow and blood pool activity is noted to the left lower extremity as compared to the right, uptake is noted at the first digit on blood flow and blood pool imaging, on delayed imaging th ere is increased uptake also present. IMPRESSION: Findings consistent with osteomyelitis first digit left foot.
[2019-12-07 16:45] LABS: Glucose,Whole Blood 235 mg/dL (75-99)
[2019-12-07] MEDS: SODIUM CHLORIDE 0.9% 1,000 ML IV SCH (16:54)
[2019-12-07] MEDS ORDERED: VANCOMYCIN 1,000 MG in SODIUM CHLORIDE 0.9% 250 ML IVPB SCH (18:00)
[2019-12-07 20:26] LABS: Glucose,Whole Blood 123 mg/dL (75-99)
[2019-12-07] MEDS: LISINOPRIL-HCTZ 20-25 MG 1 EACH TAB PO SCH (20:46)
[2019-12-07] MEDS: SENNOSIDES 8.6 MG TAB PO PRN (20:47)
--- NOTE | 2019-12-07 22:59 | PN ---
PROGRESS NOTE DATE OF SERVICE: 12/07/2019. REASON FOR FOLLOWUP: Left big toe wound with underlying osteomyelitis. INTERVAL HISTORY: The patient is currently afebrile. The patient has been breathing comfortably. The patient denies having any chest pain or cough. No nausea. No vomiting. No abdominal pain or pain to the left foot. PHYSICAL EXAMINATION: Her blood pressure is 185/82 with a pulse of 93, temperature 98.1. She is 96% on room air. General description is an elderly female up in the chair in no distress. RESPIRATORY SYSTEM: Unlabored breathing. Clear to auscultation anteriorly. HEART: S1, S2. Regular rate and rhythm. ABDOMEN: Soft. No tenderness. Left big toe is currently dressed up. No obvious drainage on the dressing. LABS: cultures normal respiratory britt. Bone scan has been suspicious for left big toe osteomyelitis. DIAGNOSTIC IMPRESSION AND PLAN: Patient with left big toe pain, swelling, redness and wound, and this patient's culture has been usual respiratory britt. Patient's bone scan is suspicious for osteomyelitis. Unfortunately the patient has been refusing a PICC line for outpatient IV antibiotic therapy, though she will benefit from Rocephin 2 grams daily. We will discuss further with the patient in the a.m. In the meantime, discontinue vancomycin, as no resistant organism has been seen. Local care to continue as ordered and continue supportive care. MMODL / IJN: [id number] /
--- NOTE | 2019-12-08 01:30 | P.PN ---
Subjective Progress Note Date: 12/06/19 Principal diagnosis: Left great toe osteomyelitis This is a pleasant 74-year-old patient of Dr. Garcia. Chronic stable medical conditions include diabetes, hyperlipidemia, hypertension and long-standing smoker. Patient has been going to a music librarian for her nails. Patient also discussed significant peripheral neuropathy. Patient noticed the wound on the left big toe for last few days. Started to drain. When down to the music librarian. [facility]. The wound is somewhat painful. The feet are also dry. Patient has known to have a prior attempt to stent the lower extremity by the surgeon out of the area. Patient is accompanied by her . Continues to smoke. Admitted with possible left big toe wound, cellulitis, COPD exacerbation. Started bronchodilators, antibiotics. Computed tomography scan of the chest negative for pulmonary fibrosis 12 04 2019 -patient breathing is a bit better. Pain control. Did tolerate some diet. Patient is being continued on IV vancomycin. Vascular surgery and ID is following. No complaints of fever or chills. No nausea vomiting or abdominal pain. 12/05/2019 Patient denied any complaints of chest pain or shortness of breath. Still complains of left foot pain. Patient also complaining of constipation and is requesting to softness. Currently being continued on antibiotics in form of IV vancomycin for left great toe osteomyelitis. Vascular surgery is planning for CT angiogram. 12/06/2019 Patient is still having left foot pain. Was seen by vascular surgery. Patient had CT angiogram done at outside hospital facility. Vascular surgery recommends follow-up as an outpatient. patient is being continued on antibiotics in the form of vancomycin. Scheduled for bone scan tomorrow to rule out osteomyelitis. Patient is afebrile. No chest pain or shortness of breath. No nausea vomiting or abdominal pain. Current medications reviewed. Objective - Vital Signs Vital signs: Vital Signs Temp 98.4 F 12/06/19 19:19 Pulse 85 12/06/19 19:19 Resp 18 12/06/19 19:19 BP 185/75 12/06/19 19:19 Pulse Ox 98 12/06/19 19:19 Intake & Output 12/06/19 12/06/19 12/07/19 06:59 18:59 06:59 Intake Total 310 Balance 310 Intake: Intake, IV Titration 310 Amount Sodium Chloride 0.9% 1, 60 000 ml @ 20 mls/hr IV . Q24H [facility] Rx#:[id number] Vancomycin 1,250 mg In 250 Sodium Chloride 0.9% 250 ml @ 125 mls/hr IVPB Q12H [facility] Rx#:[id number] Other: Voiding Method Toilet Toilet # Voids 5 2 - Exam GENERAL: Sitting at the edge of the bed EYES: Pupils equal. Conjunctiva normal. HEENT: External appearance of nose and ears normal, oral cavity grossly normal. NECK: JVD not raised; masses not palpable. HEART: First and second heart sounds are normal; no edema. LUNGS: Respiratory rate increased, decreased breaths on chronic suppression wheezing. ABDOMEN: Soft, nontender, liver spleen not palpable, no masses palpable. PSYCH: Alert and oriented x3; mood and affect anxiousl. EXTREMITIES: There is dryness of the skin below the knee down to the foot. Some redness to the left leg down to the toes. Wound on the medial and distal aspect of the left big toe with some drainage and some necrotic tissue at the base. Very dysmorphic nails. Left leg is somewhat swollen compared to the right PULSES: Unable to feel dorsalis pedis on both the feet - Labs CBC & Chem 7: 12/03/19 08:13 12/06/19 07:17 Labs: Abnormal Lab Results - Last 24 Hours (Table) 12/06/19 12/06/19 12/06/19 Range/Units 06:40 12:00 16:42 POC Glucose (mg/dL) 220 H 112 H 222 H (75-99) mg/dL Microbiology - Last 24 Hours (Table) 12/02/19 17:06 Blood Culture - Preliminary Blood No Growth after 96 hours 12/05/19 20:00 Gram Stain - Preliminary Toe - Left First Wound Culture - Preliminary Assessment and Plan Assessment: Assessment: -Strongly suspect left foot big toe distal phalanx acute osteomyelitis with involvement of the bone on the x-ray and drainage-workup in place with ID and restless history. 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 Bone scan was ordered.. Care was discussed with the patient. Follow with ID and vascular surgery. Time with Patient: Greater than 30
--- NOTE | 2019-12-08 01:32 | P.PN ---
Subjective Progress Note Date: 12/07/19 Principal diagnosis: Left great toe osteomyelitis This is a pleasant 74-year-old patient of Dr. Garcia. Chronic stable medical conditions include diabetes, hyperlipidemia, hypertension and long-standing smoker. Patient has been going to a track laminating machine tender for her nails. Patient also discussed significant peripheral neuropathy. Patient noticed the wound on the left big toe for last few days. Started to drain. When down to the track laminating machine tender. [facility]. The wound is somewhat painful. The feet are also dry. Patient has known to have a prior attempt to stent the lower extremity by the surgeon out of the area. Patient is accompanied by her . Continues to smoke. Admitted with possible left big toe wound, cellulitis, COPD exacerbation. Started bronchodilators, antibiotics. Computed tomography scan of the chest negative for pulmonary fibrosis 12 04 2019 -patient breathing is a bit better. Pain control. Did tolerate some diet. Patient is being continued on IV vancomycin. Vascular surgery and ID is following. No complaints of fever or chills. No nausea vomiting or abdominal pain. 12/05/2019 Patient denied any complaints of chest pain or shortness of breath. Still complains of left foot pain. Patient also complaining of constipation and is requesting to softness. Currently being continued on antibiotics in form of IV vancomycin for left great toe osteomyelitis. Vascular surgery is planning for CT angiogram. 12/06/2019 Patient is still having left foot pain. Was seen by vascular surgery. Patient had CT angiogram done at outside hospital facility. Vascular surgery recommends follow-up as an outpatient. patient is being continued on antibiotics in the form of vancomycin. Scheduled for bone scan tomorrow to rule out osteomyelitis. Patient is afebrile. No chest pain or shortness of breath. No nausea vomiting or abdominal pain. 12/07/2019 Patient says that her left foot pain is better. No fever no chills. No chest pain or shortness of breath. Continued on vancomycin. Vascular surgery recommends outpatient follow-up. Patient is getting bone scan today. Anticipate discharge once antibiotics are finalized. ID is on board. No other acute overnight issues. Current medications reviewed. Objective - Vital Signs Vital signs: Vital Signs Temp 98.1 F 12/07/19 19:57 Pulse 93 12/07/19 19:57 Resp 18 12/07/19 19:57 BP 185/82 12/07/19 19:57 Pulse Ox 96 12/07/19 19:57 Intake & Output 12/07/19 12/07/19 12/08/19 06:59 18:59 06:59 Other: Voiding Method Toilet Toilet # Voids 2 1 - Exam GENERAL: Sitting at the edge of the bed EYES: Pupils equal. Conjunctiva normal. HEENT: External appearance of nose and ears normal, oral cavity grossly normal. NECK: JVD not raised; masses not palpable. HEART: First and second heart sounds are normal; no edema. LUNGS: Respiratory rate increased, decreased breaths on chronic suppression wheezing. ABDOMEN: Soft, nontender, liver spleen not palpable, no masses palpable. PSYCH: Alert and oriented x3; mood and affect anxiousl. EXTREMITIES: No edema. Redness and swelling of the left leg improved. Wound on the medial and distal aspect of the left big toe with some necrotic tissue at the base. No drainage. Very dysmorphic nails. PULSES: Unable to feel dorsalis pedis on both the feet - Labs CBC & Chem 7: 12/03/19 08:13 12/06/19 07:17 Labs: Abnormal Lab Results - Last 24 Hours (Table) 12/07/19 12/07/19 12/07/19 Range/Units 06:51 11:36 16:44 POC Glucose (mg/dL) 230 H 118 H 235 H (75-99) mg/dL 12/07/19 Range/Units 20:25 POC Glucose (mg/dL) 123 H (75-99) mg/dL Microbiology - Last 24 Hours (Table) 12/02/19 17:06 Blood Culture - Preliminary Blood No Growth after 120 hours 12/05/19 20:00 Gram Stain - Final Toe - Left First Wound Culture - Final Assessment and Plan Assessment: Assessment: -Strongly suspect left foot big toe distal phalanx acute osteomyelitis with involvement of the bone on the x-ray and drainage-workup in place with ID and restless history. 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 Bone scan was ordered.. Care was discussed with the patient. Follow with ID and vascular surgery. Time with Patient: Greater than 30
[2019-12-08] MEDS: ACETAMINOPHEN TAB 325 MG TAB PO PRN (02:33)
[2019-12-08] MEDS: INSULIN ASPART (NovoLOG) 100 UNIT/ML VIAL SQ SCH ×4 (07:09→21:04)
[2019-12-08] MEDS: INSULIN DETEMIR (LEVEMIR) 100 UNIT/ML SYR SQ SCH (07:09)
[2019-12-08] MEDS: NICOTINE 21MG/24HR PATCH TRANSDERM SCH (07:14)
[2019-12-08 07:15] LABS: Glucose,Whole Blood 201 mg/dL (75-99)
[2019-12-08 07:26] LABS: Basophils # (A) 0.1 k/uL (0-0.2); Basophils % (A) 1 %; Eosinophils # (A) 0.4 k/uL (0-0.7); Eosinophils % (A) 5 %; HGB 13.2 gm/dL (11.4-16.0); Lymphocytes # (A) 2.2 k/uL (1.0-4.8); Lymphocytes % (A) 29 %; MCH 29.9 pg (25.0-35.0); MCHC 32.2 g/dL (31.0-37.0); MCV 92.9 fL (80.0-100.0); Mean Platelet Volume 8.2; Monocytes # (A) 0.6 k/uL (0-1.0); Monocytes % (A) 7 %; Neutrophils # (A) 4.3 k/uL (1.3-7.7); Neutrophils % (A) 55 %; Platelet Count 202 k/uL (150-450); RBC 4.42 m/uL (3.80-5.40); WBC 7.9 k/uL (3.8-10.6)
[2019-12-08] MEDS: IPRATROPIUM-ALBUTEROL 3 ML NEB INHALATION SCH ×4 (07:26→20:59)
[2019-12-08 07:39] LABS: African American GFR (CKD) 61 (>60 ml/min/1.73 sqM); Anion Gap 3 mmol/L; Blood Urea Nitrogen 21 mg/dL (7-17); Calcium 8.8 mg/dL (8.4-10.2); Carbon Dioxide 27 mmol/L (22-30); Chloride 104 mmol/L (98-107); Glucose 199 mg/dL (74-99); Non-African American GFR(CKD) 53 (>60 ml/min/1.73 sqM); Potassium 4.8 mmol/L (3.5-5.1); Sodium 134 mmol/L (137-145)
[2019-12-08] MEDS: LISINOPRIL-HCTZ 20-25 MG 1 EACH TAB PO SCH ×2 (08:23→21:04)
[2019-12-08] MEDS: NAPROXEN 250 MG TAB PO SCH ×2 (08:23→21:04)
[2019-12-08] MEDS: ENOXAPARIN 40 MG/0.4 ML SYRINGE SQ SCH (08:23)
[2019-12-08] MEDS: FAMOTIDINE 20 MG TAB PO SCH ×2 (08:23→21:04)
[2019-12-08] MEDS: SENNOSIDES 8.6 MG TAB PO PRN ×2 (08:26→21:07)
[2019-12-08 09:33] LABS: Erythrocyte Sedimentation Rate 30 mm/hr (0-20)
[2019-12-08 10:35] LABS: C Reactive Protein <5.0 mg/L (<10.0)
[2019-12-08 11:36] LABS: Glucose,Whole Blood 178 mg/dL (75-99)
[2019-12-08] MEDS ORDERED: LACTULOSE 20 GM/30 ML CUP PO ONE (15:05)
[2019-12-08] MEDS: HYDROcodone/APAP 5-325MG 1 EACH TAB PO PRN ×2 (15:10→23:17)
[2019-12-08 16:31] LABS: Glucose,Whole Blood 193 mg/dL (75-99)
[2019-12-08] MEDS: SODIUM CHLORIDE 0.9% 1,000 ML IV SCH (16:34)
--- NOTE | 2019-12-08 18:59 | PN ---
PROGRESS NOTE DATE OF SERVICE: 12/08/2019 REASON FOR FOLLOWUP: Left big toe wound and osteomyelitis. INTERVAL HISTORY: The patient is currently afebrile, has been breathing comfortably. Denies having any chest pain or any cough. No nausea, vomiting, abdominal pain, or pain to the left big toe. PHYSICAL EXAMINATION: Blood pressure 175/75 with a pulse of 80, temperature 98.2. She is 99% on room air. General description is an elderly female lying in bed in no distress. RESPIRATORY SYSTEM: Unlabored breathing. Clear to auscultation anteriorly. HEART: S1, S2. Regular rate and rhythm. ABDOMEN: Soft. No tenderness. Left foot is currently dressed up. No obvious drainage on the dressing. LABS: Hemoglobin 13.2, white count 7.9. ESR is 30. BUN of 21, creatinine 1.06. Bone scan is positive. Wound culture has been usual respiratory britt. DIAGNOSTIC IMPRESSION AND PLAN: Patient with left big toe nonhealing wound with secondary cellulitis and a question of osteomyelitis. The bone scan has been positive. Clinically not behaving as such. The patient has been refusing her IV. She has been given the option of Rocephin 2 grams daily per PICC line, which she has refused. May transition to oral antibiotic such as oral Keflex and close outpatient followup. Continue with supportive care. MMODL / IJN: [id number] /
[2019-12-08 20:30] LABS: Glucose,Whole Blood 270 mg/dL (75-99)
[2019-12-08] MEDS ORDERED: INSULIN DETEMIR (LEVEMIR) 100 UNIT/ML SYR SQ SCH (23:47)
--- NOTE | 2019-12-08 23:47 | P.PN ---
Progress Note - Text Progress Note Date: 12/08/19 Chief Complaint: Wound on the left big toe History of presenting complaint: This is a pleasant 74-year-old patient of Dr. Garcia. Chronic stable medical conditions include diabetes, hyperlipidemia, hypertension and long-standing smoker. Patient has been going to a freight weigher for her nails. Patient also discussed significant peripheral neuropathy. Patient noticed the wound on the left big toe for last few days. Started to drain. When down to the freight weigher. [facility]. The wound is somewhat painful. The feet are also dry. Patient has known to have a prior attempt to stent the lower extremity by the surgeon out of the area. Patient is accompanied by her . Continues to smoke. Admitted with possible left big toe wound, cellulitis, COPD exacerbation. Started bronchodilators, antibiotics. Computed tomography scan of the chest negative for pulmonary fibrosis. Bone scan did confirm osteomyelitis. Today-patient has been ambulatory in the hallway with a walker. Pain control. Breathing is much improved. Had declined PICC line earlier. Starting a diet. Review of systems: Was done for constitutional, cardiovascular, GI, pulmonary. relevant finding as above Active Medications Acetaminophen (Tylenol Tab) 650 mg PO Q6HR PRN PRN Reason: Fever and/ or Pain Last Admin: 12/08/19 02:33 Dose: 650 mg Documented by: Hydrocodone Bitart/Acetaminophen ([place] 5-325) 1 each PO Q6HR PRN PRN Reason: Pain Last Admin: 12/08/19 23:17 Dose: 1 each Documented by: Albuterol/Ipratropium (Duoneb 0.5 Mg-3 Mg/3 Ml Soln) 3 ml INHALATION RT-QID [facility] Last Admin: 12/08/19 20:59 Dose: Not Given Documented by: Enoxaparin Sodium (Lovenox) 40 mg SQ DAILY [facility] Last Admin: 12/08/19 08:23 Dose: 40 mg Documented by: Famotidine (Pepcid) 20 mg PO BID [facility] Last Admin: 12/08/19 21:04 Dose: 20 mg Documented by: Lisinopril/HCTZ (Zestoretic 20-25) 1 each PO BID [facility] Last Admin: 12/08/19 21:04 Dose: 1 each Documented by: Sodium Chloride (Saline 0.9%) 1,000 mls @ 20 mls/hr IV .Q24H [facility] Last Admin: 12/08/19 16:34 Dose: Not Given Documented by: Ceftriaxone Sodium 2 gm/ (Sodium Chloride) 50 mls @ 100 mls/hr IVPB Q24HR [facility] Last Admin: 12/08/19 08:23 Dose: 100 mls/hr Documented by: Insulin Aspart (Novolog) 0 unit SQ ACHS [facility]; Protocol Last Admin: 12/08/19 21:04 Dose: 4 unit Documented by: Insulin Detemir (Levemir) 15 unit SQ DAILY@0700 [facility] Last Admin: 12/08/19 07:09 Dose: 15 unit Documented by: Naproxen (Naprosyn) 250 mg PO BID [facility] Last Admin: 12/08/19 21:04 Dose: 250 mg Documented by: Nicotine (Habitrol 21mg/24hr Patch) 1 patch TRANSDERM DAILY [facility] Last Admin: 12/08/19 07:14 Dose: Not Given Documented by: Senna (Senokot) 8.6 mg PO BID PRN PRN Reason: Constipation Last Admin: 12/08/19 21:07 Dose: 8.6 mg Documented by: Physical examination: VITAL SIGNS: 98.2, 80, 18, blood pressure 175 was 75, 99% on room air GENERAL: Sitting up, but anxious EYES: Pupils equal. Conjunctiva normal. HEENT: External appearance of nose and ears normal, oral cavity grossly normal. NECK: JVD not raised; masses not palpable. HEART: First and second heart sounds are normal; no edema. LUNGS: Respiratory rate increased, decreased breaths ABDOMEN: Soft, nontender, liver spleen not palpable, no masses palpable. PSYCH: Alert and oriented x3; mood and affect anxiousl. EXTREMITIES: There is dryness of the skin below the knee down to the foot. Some redness to the left leg down to the toes. Wound on the medial and distal aspect of the left big toe with some drainage and some necrotic tissue at the base. Very dysmorphic nails. Left leg is somewhat swollen compared to the right INVESTIGATIONS, reviewed in the clinical context: White count 7.9 hemoglobin 13.2 potassium 4.8 bun 21 and crit 1.06 Previous testing White count 12.8 hemoglobin 15 platelets 239 potassium 4.2 creatinine 0.88 EKG tracing personally reviewed by me-normal sinus rhythm with some poor R-wave progression in anterior leads Left foot x-ray-shows also born in the distal phalanx distally Chest x-ray film personally reviewed by me-shows very prominent interstitium CT chest-negative for pulmonary fibrosis DVT-left leg negative Assessment: - left foot big toe distal phalanx acute osteomyelitis -Peripheral arterial disease with a prior attempt a stent in the past -Acute COPD exacerbation in a current smoker-improved -Chronic nicotine dependence patient's cigarette smoker -Swelling of the left leg compared to the right lower DVT -Onychomycosis on both feet the toenails, but dysmorphic nails -Acute cellulitis of the left lower extremity distal to the knee -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 Patient's family agreed to have a PICC line. Spoke to the social media marketing analyst. Arranging for discharge planning and antibiotics. We'll increase the Lantus to 20 units. And NovoLog 3 units with each meal.
[2019-12-09 01:07] LABS: Glucose,Whole Blood 237 mg/dL (75-99)
[2019-12-09 06:55] LABS: Glucose,Whole Blood 177 mg/dL (75-99)
[2019-12-09 08:17] VITALS: BP 132/65; PULSE 73; RESP 17; TEMP 97.8
[2019-12-09] MEDS: IPRATROPIUM-ALBUTEROL 3 ML NEB INHALATION SCH ×2 (08:25→11:41)
[2019-12-09] MEDS: NICOTINE 21MG/24HR PATCH TRANSDERM SCH (08:31)
[2019-12-09] MEDS: LISINOPRIL-HCTZ 20-25 MG 1 EACH TAB PO SCH (08:32)
[2019-12-09] MEDS: ENOXAPARIN 40 MG/0.4 ML SYRINGE SQ SCH (08:32)
[2019-12-09] MEDS: INSULIN ASPART (NovoLOG) 100 UNIT/ML VIAL SQ SCH ×4 (08:32→12:05)
[2019-12-09] MEDS: FAMOTIDINE 20 MG TAB PO SCH (08:33)
[2019-12-09] MEDS: NAPROXEN 250 MG TAB PO SCH (08:33)
[2019-12-09] MEDS: SENNOSIDES 8.6 MG TAB PO PRN (08:35)
[2019-12-09] MEDS ORDERED: IV FLUID CONTINUATION 1,000 ML IV ONE (09:40)
[2019-12-09] MEDS ORDERED: LIDOCAINE 1% INJ 10MG/ML (20 ML MDV) SQ ONE (10:11)
--- NOTE | 2019-12-09 10:43 | IR ---
EXAMINATION TYPE: IR cvc insert >=5 years DATE OF EXAM: 12/09/2019 COMPARISON: NONE CLINICAL HISTORY: Infection Needs long-term intravenous access for antibiotics. PROCEDURE: Hand hygiene obtained with soap and water and alcohol-based hand rub. After informed consent, the skin overlying the left basilic vein was localized with ultrasound and no nupur to be compressible and patent. An ultrasound image was obtained and submitted on the patient's c gurrola. The overlying skin was prepped and draped and Lidocaine was used for local anesthesia. A skin selene was made with a scalpel. Access was gained to the vein under ultrasound guidance with a 21 gau ge needle and a 0.018 inch wire was advanced. Access site was dilated with Peel-Away sheath and cath eter tailored to the appropriate length and advanced such that the distal tip is at the cavoatrial ju nction. Spot image was obtained verifying placement. Catheter was fixed to the skin and a sterile d ressing was placed following hemostasis. Catheter was aspirated and flushed with saline. Patient wa s discharged in stable condition without complication.Maximal barrier technique is utilized. Ultraso und image is documented on the chart. Ultrasound used with sterile technique. Fluoro time and fluoroscopic images submitted to document procedure: 0.1 minutes fluoroscopy time, 85 intraoperative images document the procedure IMPRESSION: STATUS POST ULTRASOUND AND FLUOROSCOPIC GUIDED PICC LINE PLACEMENT, READY FOR USE. THIS PROCEDURE WAS PERFORMED BY THE UNDERSIGNED.
[2019-12-09 11:55] LABS: Glucose,Whole Blood 131 mg/dL (75-99)
--- NOTE | 2019-12-09 16:32 | PN ---
PROGRESS NOTE DATE OF SERVICE: 12/09/2019 REASON FOR FOLLOWUP: Left big toe wound and osteomyelitis. INTERVAL HISTORY: The patient is currently afebrile. She has been breathing comfortably. Denies having any chest pain or cough. No nausea or vomiting or abdominal pain. No diarrhea. PHYSICAL EXAMINATION: Her blood pressure is 132/55 with a pulse of 72, temperature 97.8. She is 96% on room air. General description is an elderly female up in the room in no distress. RESPIRATORY SYSTEM: Unlabored breathing. Clear to auscultation anteriorly. HEART: S1, S2. Regular rate and rhythm. ABDOMEN: Soft. No tenderness. Left foot is currently dressed up. No obvious drainage on the dressing. LABS: No new labs have been obtained today. DIAGNOSTIC IMPRESSION AND PLAN: Patient with a left big toe wound with underlying osteomyelitis on the basis of the bone scan. Wound culture has been usual skin britt. Currently on Rocephin 2 grams daily; to continue for 4 weeks. Local wound care to continue with [facility]. Close outpatient followup. Sed rate of 30. That will be monitored in the outpatient setting. MMODL / IJN: [id number] /
[2019-12-09] MEDS ORDERED: INSULIN DETEMIR (LEVEMIR) 100 UNIT/ML SYR SQ SCH (21:00)
--- NOTE | 2019-12-09 21:08 | P.DS ---
Providers Date of admission: 12/02/19 15:43 Expected date of discharge: 12/09/19 Attending physician: Oscar Ortega Consults: 12/02/19 14:26 Consult Physician Routine Consulting Provider: Xander Salmeron Consult Reason/Comments: cellulitis Do you want consulting provider notified?: Yes 12/02/19 14:28 Consult Physician Routine Consulting Provider: Ok Cummings Consult Reason/Comments: vascular disease Do you want consulting provider notified?: Yes Primary care physician: [facility] Course: Chief Complaint: Wound on the left big toe History of presenting complaint: This is a pleasant 74-year-old patient of Dr. Garcia. Chronic stable medical conditions include diabetes, hyperlipidemia, hypertension and long-standing smoker. Patient has been going to a hardware manager for her nails. Patient also discussed significant peripheral neuropathy. Patient noticed the wound on the left big toe for last few days. Started to drain. When down to the hardware manager. [facility] in. The wound is somewhat painful. The feet are also dry. Patient has known to have a prior attempt to stent the lower extremity by the surgeon out of the area. Patient is accompanied by her . Continues to smoke. Admitted with possible left big toe wound, cellulitis, COPD exacerbation. Started bronchodilators, antibiotics. Computed tomography scan of the chest negative for pulmonary fibrosis. Bone scan did confirm osteomyelitis. PICC line was placed Today-stable. Breathing is good. Ambulating in the hallway. He'll be getting antibiotics at home. Discussed with Dr. Lara-4 weeks. Discussed with demand planner Discussion and discharge planning more than 35 minutes Consultation: Dr. Salmeron from ID Dr. Rodriguez from vascular surgery Physical examination: VITAL SIGNS: 97.8, 73, 17, blood pressure 122/65, 96% on room air GENERAL: Comfortable EYES: Pupils equal. Conjunctiva normal. HEENT: External appearance of nose and ears normal, oral cavity grossly normal. NECK: JVD not raised; masses not palpable. HEART: First and second heart sounds are normal; no edema. LUNGS: Respiratory rate increased, decreased breaths ABDOMEN: Soft, nontender, liver spleen not palpable, no masses palpable. PSYCH: Alert and oriented x3; mood and affect anxiousl. EXTREMITIES: There is dryness of the skin below the knee down to the foot. Some redness to the left leg down to the toes. Wound on the medial and distal aspect of the left big toe with some drainage and some necrotic tissue at the base. Very dysmorphic nails. Left leg is somewhat swollen compared to the right INVESTIGATIONS, reviewed in the clinical context: White count 7.9 hemoglobin 13.2 potassium 4.8 bun 21 and crit 1.06 Previous testing White count 12.8 hemoglobin 15 platelets 239 potassium 4.2 creatinine 0.88 EKG tracing personally reviewed by me-normal sinus rhythm with some poor R-wave progression in anterior leads Left foot x-ray-shows also born in the distal phalanx distally Chest x-ray film personally reviewed by me-shows very prominent interstitium CT chest-negative for pulmonary fibrosis DVT-left leg negative Assessment: - left foot big toe distal phalanx acute osteomyelitis , POA -Peripheral arterial disease with a prior attempt a stent in the past -Acute COPD exacerbation in a current smoker-improved, POA -Chronic nicotine dependence patient's cigarette smoker -Swelling of the left leg compared to the right lower leg-DVT ruled out -Onychomycosis on both feet the toenails, but dysmorphic nails -Acute cellulitis of the left lower extremity distal to the knee -Diabetes mellitus type 2 causing painful peripheral neuropathy -Diabetes mellitus type 2 uncontrolled with hyperglycemia -Hyperlipidemia -Essential hypertension Disposition: Home Patient Condition at Discharge: Fair Plan - Discharge Summary Discharge Rx Participant: No New Discharge Prescriptions: New Ipratropium-Albuterol Nebulize [Duoneb 0.5 mg-3 mg/3 ml Soln] 3 ml INHALATION BID #60 ml Nicotine 21Mg/24Hr Patch [Habitrol] 1 patch TRANSDERM DAILY #14 patch Naproxen [Naprosyn] 250 mg PO BID #30 tab Famotidine [Pepcid] 20 mg PO BID #60 tab cefTRIAXone [Rocephin] 2 gm IVPB Q24HR #28 vial Lisinopril-Hctz 20-25 mg [Zestoretic 20-25] 1 each PO BID #60 tab Changed Insulin Glargine,Hum.rec.anlog [Lesley Booneostbecca] 20 units SQ DAILY #0 Discontinued Lisinopril [Zestril] 10 mg PO DAILY Discharge Medication List Famotidine [Pepcid] 20 mg PO BID #60 tab 12/09/19 [Rx] Insulin Glargine,Hum.rec.anlog [Toujeo Solostar] 20 units SQ DAILY #0 12/09/19 [Rx] Ipratropium-Albuterol Nebulize [Duoneb 0.5 mg-3 mg/3 ml Soln] 3 ml INHALATION BID #60 ml 12/09/19 [Rx] Lisinopril-Hctz 20-25 mg [Zestoretic 20-25] 1 each PO BID #60 tab 12/09/19 [Rx] Naproxen [Naprosyn] 250 mg PO BID #30 tab 12/09/19 [Rx] Nicotine 21Mg/24Hr Patch [Habitrol] 1 patch TRANSDERM DAILY #14 patch 12/09/19 [Rx] cefTRIAXone [Rocephin] 2 gm IVPB Q24HR #28 vial 12/09/19 [Rx] Follow up Appointment(s)/Referral(s): Héctor Garcia MD [Primary Care Provider] - 12/14/19 8:30 am [facility], [NON-STAFF] - [facility], [REFERRING] - Xander Salmeron MD [STAFF PHYSICIAN] - 12/28/19 9:15 am Patient Instructions/Handouts: Osteomyelitis (DC) Activity/Diet/Wound Care/Special Instructions: [facility] infusion supply [employer] will deliver the IV antibiotic supplies tonight. [facility] care will come out to the house tomorrow (12/10/2019) to teach you how to do the IV antibiotics. Weekly CBC/BMP/ESR Discharge Disposition: HOME SELF-CARE
== END 2019-12-09 13:51 | disposition home health service (06) | DRG 638 ==
LOC: EC 12:06 → 4SSUR 15:43
PROVIDERS: ADMIT Hospitalist; ATTEND Hospitalist
PROC: 02HV33Z Insertion of Infusion Device into Superior Vena Cava, Percutaneous Approach (ICD-10-PCS; principal; 2019-12-09 10:00)
DX: E11.69 Type 2 diabetes mellitus with other specified complication (principal); J44.1 Chronic obstructive pulmonary disease with (acute) exacerbation; M86.172 Other acute osteomyelitis, left ankle and foot; L03.116 Cellulitis of left lower limb; E11.42 Type 2 diabetes mellitus with diabetic polyneuropathy; E11.51 Type 2 diabetes mellitus with diabetic peripheral angiopathy without gangrene; E11.65 Type 2 diabetes mellitus with hyperglycemia; E78.5 Hyperlipidemia, unspecified; F17.210 Nicotine dependence, cigarettes, uncomplicated; I10 Essential (primary) hypertension; K59.00 Constipation, unspecified; L03.039 Cellulitis of unspecified toe; Z86.73 Personal history of transient ischemic attack (TIA), and cerebral infarction without residual deficits; Z79.899 Other long term (current) drug therapy; Z90.710 Acquired absence of both cervix and uterus; Z88.0 Allergy status to penicillin; Z90.49 Acquired absence of other specified parts of digestive tract
CPT/HCPCS: 36415; 36573; 71045; 71250; 78315; 80048; 80202; 81001; 82565; 83036; 85025; 85027; 85652; 86140; 87040; 87070; 87205; 93005; 94640; 96365; 96375; 99284

== ENCOUNTER 2020-07-09 14:05 | Emergency (ER) | payer MEDICARE ==
[2020-07-09 14:16] VITALS: TEMP 97
[2020-07-09] MEDS ORDERED: SODIUM CHLORIDE 0.9% 1,000 ML IV STA ×2 (14:17→16:13)
--- NOTE | 2020-07-09 14:19 | ED ---
Abdominal Pain HPI - General Chief Complaint: Abdominal Pain Stated Complaint: Abd pain Time Seen by Provider: 07/09/20 14:17 Source: EMS, RN notes reviewed, old records reviewed Mode of arrival: EMS Limitations: no limitations - History of Present Illness Initial Comments: This is a 74-year-old female she presents today for evaluation, patient is here for evaluation regards to abdominal pain. Chronic abdominal pain 4-6 months of abdominal pain. No fevers no nausea vomiting patient is very emotional Voltaren question taking and exam. Patient hasn't being seen for evaluation as abdominal pain with no findings. Patient has had 2 surgeries gallbladder uterus MD Complaint: abdominal pain -: month(s) Location: diffuse Radiation: none Migration to: no migration Severity: mild Severity scale (1-10): 3 Quality: cramping, aching Consistency: intermittent Improves With: nothing Worsens With: nothing Associated Symptoms: denies other symptoms - Related Data Home Medications Medication Instructions Recorded Confirmed Insulin Glargine,Hum.rec.anlog 38 units SQ DAILY 07/09/20 07/09/20 [Toujeo Solostar] Lisinopril-Hctz 20-25 mg 1 tab PO BID 07/09/20 07/09/20 [Zestoretic 20-25] Allergies Allergy/AdvReac Type Severity Reaction Status Date / Time Penicillins Allergy Unknown Verified 07/09/20 15:38 Review of Systems ROS Statement: Those systems with pertinent positive or pertinent negative responses have been documented in the HPI. ROS Other: All systems not noted in ROS Statement are negative. Past Medical History Past Medical History: CVA/TIA, Diabetes Mellitus, Hyperlipidemia, Hypertension Additional Past Medical History / Comment(s): COLITIS History of Any Multi-Drug Resistant Organisms: None Reported Past Surgical History: Cholecystectomy, Hysterectomy, Tonsillectomy Additional Past Surgical History / Comment(s): Left femoral stent. Past Anesthesia/Blood Transfusion Reactions: No Reported Reaction Additional Past Anesthesia/Blood Transfusion Reaction / Comment(s): no history of blood trasfusion Past Psychological History: No Psychological Hx Reported Smoking Status: Current every day smoker Past Alcohol Use History: None Reported Past Drug Use History: Marijuana - Past Family History Father Family Medical History: Diabetes Mellitus, Myocardial Infarction (MD) Mother Family Medical History: Cancer Additional Family Medical History / Comment(s): liver cancer General Exam Limitations: no limitations General appearance: alert, in no apparent distress Head exam: Present: atraumatic, normocephalic, normal inspection Eye exam: Present: normal appearance, PERRL, EOMI. Absent: scleral icterus, conjunctival injection, periorbital swelling ENT exam: Present: normal exam, mucous membranes moist Neck exam: Present: normal inspection. Absent: tenderness, meningismus, lymphadenopathy Respiratory exam: Present: normal lung sounds bilaterally. Absent: respiratory distress, wheezes, rales, rhonchi, stridor Cardiovascular Exam: Present: regular rate, normal rhythm, normal heart sounds. Absent: systolic murmur, diastolic murmur, rubs, gallop, clicks GI/Abdominal exam: Present: soft, normal bowel sounds. Absent: distended, tenderness, guarding, rebound, rigid Extremities exam: Present: normal inspection, full ROM, normal capillary refill. Absent: tenderness, pedal edema, joint swelling, calf tenderness Back exam: Present: normal inspection Neurological exam: Present: alert, oriented X3, CN II-XII intact Psychiatric exam: Present: normal affect, normal mood Skin exam: Present: warm, dry, intact, normal color. Absent: rash Course Vital Signs 07/09/20 07/09/20 14:11 16:51 Temperature 97.0 F L Pulse Rate 70 82 Respiratory 18 16 Rate Blood Pressure 135/75 129/66 O2 Sat by Pulse 95 98 Oximetry - Reevaluation(s) Reevaluation #1: 07/09/20 17:54 Medical records reviewed Reevaluation #2: 07/09/20 17:54 Patient has adequate pain control very emotional Reevaluation #3: 07/09/20 17:54 Patient family informed of patient results, questions answered - Consultations Consultation #1: spoke with vascular surgery regarding aneurysm, no need for further evaluation, not cause a patient's symptoms Medical Decision Making - Medical Decision Making 74 female to the ER for evaluation of abdominal pain. No acute findings here in the ER, patient can be discharged home - Lab Data Result diagrams: 07/09/20 14:19 07/09/20 14:19 Lab Results 07/09/20 07/09/20 07/09/20 Range/Units 14:19 14:19 14:19 WBC 16.8 H (3.8-10.6) k/uL RBC 4.65 (3.80-5.40) m/uL Hgb 14.4 (11.4-16.0) gm/dL Hct 44.1 (34.0-46.0) % MCV 95.0 (80.0-100.0) fL MCH 30.9 (25.0-35.0) pg MCHC 32.5 (31.0-37.0) g/dL RDW 13.4 (11.5-15.5) % Plt Count 252 (150-450) k/uL Neutrophils % 87 % Lymphocytes % 9 % Monocytes % 3 % Eosinophils % 1 % Basophils % 1 % Neutrophils # 14.6 H (1.3-7.7) k/uL Lymphocytes # 1.5 (1.0-4.8) k/uL Monocytes # 0.5 (0-1.0) k/uL Eosinophils # 0.1 (0-0.7) k/uL Basophils # 0.1 (0-0.2) k/uL Sodium 136 L (137-145) mmol/L Potassium 4.4 (3.5-5.1) mmol/L Chloride 104 (98-107) mmol/L Carbon Dioxide 25 (22-30) mmol/L Anion Gap 7 mmol/L BUN 32 H (7-17) mg/dL Creatinine 1.29 H (0.52-1.04) mg/dL Est GFR (CKD-EPI)AfAm 48 (>60 ml/min/1.73 sqM) Est GFR (CKD-EPI)NonAf 42 (>60 ml/min/1.73 sqM) Glucose 241 H (74-99) mg/dL Lactic Ac Sepsis Rflx Plasma Lactic Acid Jose (0.7-2.0) mmol/L Calcium 9.1 (8.4-10.2) mg/dL Total Bilirubin 0.4 (0.2-1.3) mg/dL AST 18 (14-36) U/L ALT 13 (4-34) U/L Alkaline Phosphatase 65 (38-126) U/L Creatine Kinase 71 (30-135) U/L Total Protein 7.0 (6.3-8.2) g/dL Albumin 4.0 (3.5-5.0) g/dL Amylase 75 (30-110) U/L Lipase 80 (23-300) U/L Urine Color Yellow Urine Appearance Cloudy H (Clear) Urine pH 6.0 (5.0-8.0) Ur Specific [place] 1.019 (1.001-1.035) Urine Protein 3+ H (Negative) Urine Glucose (UA) Negative (Negative) Urine Ketones Negative (Negative) Urine Blood Small H (Negative) Urine Nitrite Negative (Negative) Urine Bilirubin Negative (Negative) Urine Urobilinogen <2.0 (<2.0) mg/dL Ur Leukocyte Esterase Negative (Negative) Urine RBC 10 H (0-5) /hpf Urine WBC 1 (0-5) /hpf Ur Squamous Epith Cells 8 H (0-4) /hpf Urine Bacteria Occasional H (None) /hpf Hyaline Casts 15 H (0-2) /lpf 07/09/20 07/09/20 07/09/20 Range/Units 14:19 14:42 16:49 WBC (3.8-10.6) k/uL RBC (3.80-5.40) m/uL Hgb (11.4-16.0) gm/dL Hct (34.0-46.0) % MCV (80.0-100.0) fL MCH (25.0-35.0) pg MCHC (31.0-37.0) g/dL RDW (11.5-15.5) % Plt Count (150-450) k/uL Neutrophils % % Lymphocytes % % Monocytes % % Eosinophils % % Basophils % % Neutrophils # (1.3-7.7) k/uL Lymphocytes # (1.0-4.8) k/uL Monocytes # (0-1.0) k/uL Eosinophils # (0-0.7) k/uL Basophils # (0-0.2) k/uL Sodium (137-145) mmol/L Potassium (3.5-5.1) mmol/L Chloride (98-107) mmol/L Carbon Dioxide (22-30) mmol/L Anion Gap mmol/L BUN (7-17) mg/dL Creatinine (0.52-1.04) mg/dL Est GFR (CKD-EPI)AfAm (>60 ml/min/1.73 sqM) Est GFR (CKD-EPI)NonAf (>60 ml/min/1.73 sqM) Glucose (74-99) mg/dL Lactic Ac Sepsis Rflx Y Plasma Lactic Acid Jose 2.1 H* 1.6 (0.7-2.0) mmol/L Calcium (8.4-10.2) mg/dL Total Bilirubin (0.2-1.3) mg/dL AST (14-36) U/L ALT (4-34) U/L Alkaline Phosphatase (38-126) U/L Creatine Kinase (30-135) U/L Total Protein (6.3-8.2) g/dL Albumin (3.5-5.0) g/dL Amylase (30-110) U/L Lipase (23-300) U/L Urine Color Urine Appearance (Clear) Urine pH (5.0-8.0) Ur Specific [place] (1.001-1.035) Urine Protein (Negative) Urine Glucose (UA) (Negative) Urine Ketones (Negative) Urine Blood (Negative) Urine Nitrite (Negative) Urine Bilirubin (Negative) Urine Urobilinogen (<2.0) mg/dL Ur Leukocyte Esterase (Negative) Urine RBC (0-5) /hpf Urine WBC (0-5) /hpf Ur Squamous Epith Cells (0-4) /hpf Urine Bacteria (None) /hpf Hyaline Casts (0-2) /lpf - Radiology Data Radiology results: report reviewed (CT head and pelvis is negative for acute disease), image reviewed Disposition Clinical Impression: Abdominal pain Disposition: HOME SELF-CARE Condition: Good Instructions (If sedation given, give patient instructions): Abdominal Pain (ED) Is patient prescribed a controlled substance at d/c from ED?: No Referrals: Héctor Garcia MD [Primary Care Provider] - 1-2 days
[2020-07-09 14:26] LABS: Basophils # (A) 0.1 k/uL (0-0.2); Basophils % (A) 1 %; Eosinophils # (A) 0.1 k/uL (0-0.7); Eosinophils % (A) 1 %; HCT 44.1 % (34.0-46.0); HGB 14.4 gm/dL (11.4-16.0); Lymphocytes # (A) 1.5 k/uL (1.0-4.8); Lymphocytes % (A) 9 %; MCH 30.9 pg (25.0-35.0); MCHC 32.5 g/dL (31.0-37.0); Mean Platelet Volume 7.3; Monocytes # (A) 0.5 k/uL (0-1.0); Monocytes % (A) 3 %; Neutrophils # (A) 14.6 k/uL (1.3-7.7); Neutrophils % (A) 87 %; Platelet Count 252 k/uL (150-450); RBC 4.65 m/uL (3.80-5.40); RDW 13.4 % (11.5-15.5); WBC 16.8 k/uL (3.8-10.6)
[2020-07-09 14:50] LABS: Calcium 9.1 mg/dL (8.4-10.2); Potassium 4.4 mmol/L (3.5-5.1); Total Bilirubin 0.4 mg/dL (0.2-1.3)
[2020-07-09 15:55] LABS: Appearance,Urine Cloudy (Clear); Bacteria,Urine Occasional /hpf; Bilirubin,Urine Negative (Negative); Blood,Urine Small (Negative); Color,Urine Yellow; Glucose,Urine (UA) Negative (Negative); Hyaline Casts,Urine 15 /lpf (0-2); Ketones,Urine Negative (Negative); Leukocyte Esterase,Urine Negative (Negative); Nitrite,Urine Negative (Negative); Protein,Urine 3+ (Negative); RBC,Urine 10 /hpf (0-5); Specific Gravity,Urine 1.019 (1.001-1.035); Squamous Epithelial Cell,Urine 8 /hpf (0-4); Urobilinogen,Urine <2.0 mg/dL (<2.0); WBC,Urine 1 /hpf (0-5)
--- NOTE | 2020-07-09 16:10 | CT ---
EXAMINATION TYPE: CT abdomen pelvis w con DATE OF EXAM: 07/09/2020 COMPARISON: 10/31/2011 HISTORY: Abdominal pain. Isovue 300/80 ml. GFR 42, injection requested by Dr. Barba CT DLP: 905.7 mGycm Automated exposure control for dose reduction was used. CONTRAST: Performed with IV Contrast, patient injected with 80 mL of Isovue 300. There is minimal subsegmental atelectasis at the lung bases. Heart size is normal. There is no perica rdial effusion. There is no pleural effusion. Liver shows no focal defect. There are clips from floyd cystectomy. Spleen is intact. Stomach is intact. There is no pancreatic mass. There is no adrenal mass. Kidneys show satisfactory contrast opacification. There is no hydronephrosi s. Ureters are not dilated. Abdominal aorta is atheromatous. There is 4 cm aneurysm of the lower abdo angélica aorta. Delayed images show normal renal excretion. There is no retroperitoneal adenopathy. Blad aditya distends smoothly. There is no inguinal hernia. There is no free fluid in the pelvis. There is no evidence of a pelvic mass. Lumbar vertebra have normal alignment. There is 10% wedging of L5 vertebral body that appears old. There is no mesenteric edema. There is no ascites or free air. There is no bowel obstruction. Appendi x is posterior and appears normal. 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 Aneurysm is essentially ne w compared to old exam. Abdomen aorta on old exam measures 2.6 cm.
[2020-07-09] MEDS ORDERED: MORPHINE SULFATE 4 MG/ML SYRINGE IVP STA (16:13)
[2020-07-09] MEDS ORDERED: ONDANSETRON 4 MG ODT STARTER PACK 2 TAB BTL PO STA (16:50)
[2020-07-09] MEDS ORDERED: ACET/COD 300 MG/30 MG STARTER PACK 6 TAB BTL PO STA (16:50)
[2020-07-09 16:51] VITALS: BP 129/66; PULSE 82; RESP 16
== END 2020-07-09 17:12 | disposition home or self-care (01) ==
LOC: EC 14:05
DX: R10.9 Unspecified abdominal pain (principal); G89.29 Other chronic pain; I10 Essential (primary) hypertension; E11.9 Type 2 diabetes mellitus without complications; F17.200 Nicotine dependence, unspecified, uncomplicated; Z79.4 Long term (current) use of insulin; Z79.899 Other long term (current) drug therapy; Z88.0 Allergy status to penicillin; Z90.49 Acquired absence of other specified parts of digestive tract; Z90.710 Acquired absence of both cervix and uterus; Z86.73 Personal history of transient ischemic attack (TIA), and cerebral infarction without residual deficits
CPT/HCPCS: 36415; 80053; 82150; 82550; 83605; 83690; 85025; 81001; 74177; 99285; 96374; 96361 ×3; J2270; S0119; Q9967

== ENCOUNTER → 2023-03-14 | Outpatient (CLI) | payer MEDICARE ==
[2023-03-14 12:05] LABS: African American GFR (CKD) 37 (>60 ml/min/1.73 sqM); Blood Urea Nitrogen 32 mg/dL (7-17); Non-African American GFR(CKD) 32 (>60 ml/min/1.73 sqM)
--- NOTE | 2023-03-14 14:13 | CT ---
EXAMINATION TYPE: CT chest w con DATE OF EXAM: 03/14/2023 COMPARISON: 12/01/2000 HISTORY: Solitary pulmonary nodule. CT DLP: 1494.4 mGycm Automated exposure control for dose reduction was used. TECHNIQUE: CT scan of the chest is performed with IV Contrast, patient injected with 80ml mL of Isovue 300. MIP Images are created on CT scanner and reviewed. 3D reconstructed images are created on an independent workstation and reviewed. FINDINGS: LUNGS: The lungs are grossly clear, there is no concerning parenchymal consolidation identified. Th ere is no pleural effusion or pneumothorax seen. The tracheobronchial tree is patent. Biapical pleur al thickening. There is a 1 mm nodule in the right lung apex axial image 13. Small bleb is seen in the right lower l obe superior segment. There are mild [place] changes. MEDIASTINUM: There are no greater than 1 cm hilar or mediastinal lymph nodes. No pericardial effusi on is seen. There is cardiomegaly with coronary artery calcification. Calcification of the aorta not ed with no evidence of aneurysm. OTHER: There is a small hiatal hernia. Hypertrophic and degenerative changes of the spine. There is a subcentimeter right thyroid nodule bilateral shoulder arthropathy greater on the right. On the simeon l image there aorta is ectatic measuring 2.7 cm. Atherosclerotic plaque in the origins of the bilater al renal arteries. There is thickening of the bilateral adrenal glands may be in the basis of hyperplasia or tiny adenom a. Stable from CT scan 07/09/2020 postcholecystectomy changes noted. Breast calcifications seen on th e left. There is a severe compression fracture mid thoracic spine. There also is a calcification in the mid t o upper thoracic region within the spinal canal. There is a asymmetric density in the right breast me asuring 1.5 cm partially included IMPRESSION: 1. Emphysematous changes with a benign appearing 1 to 2 mm right apical lung nodule. 2. Dense coronary artery calcification. 3. Hiatal hernia. There is fluid within the esophagus to the level of the mid thoracic level. Patient is at risk for aspiration. 4. Multilevel severe degenerative disc disease with a severe compression fracture midthoracic spine w ith approximate 70% reduction in vertebral body height. There also is a calcification within the thec al sac posteriorly in the mid thoracic spine which could be evaluated with CT scan or MRI for further evaluation. 5. Subcentimeter right thyroid nodule. 6. There is a right breast asymmetric density partially included in the [id number], recommend foll ow-up mammogram.
--- NOTE | 2023-03-14 14:25 | MM ---
Reason for Exam: Clinical finding. Indicated Problems: Lump or thickening of the left side. Risk Values: Jada 5 year model risk: 1.2%. NCI Lifetime model risk: 2.5%. Prior Study Comparison: No prior studies available for comparison. Tissue Density: The breast tissue is heterogeneously dense. This may lower the sensitivity of mammography. Findings: Analyzed By CAD. 2 masses are seen within the upper outer quadrant of the right breast one of which demonstrates internal calcifications likely reflects fibroadenoma. Ultrasound correlation is recommended given no prior studies are available for review. No mass is present of the left breast. Benign-appearing calcifications are seen bilaterally. Overall Assessment: Incomplete: need additional imaging evaluation, BI-RAD 0 Management: Diagnostic Breast Ultrasound of the right breast. . Results were given to the patient verbally at the time of exam. Patient should continue monthly self-breast exams. A clinical breast exam by your physician is recommended on an annual basis. This exam should not preclude additional follow-up of suspicious palpable abnormalities. Note on Jada scores and lifetime risk: 1. A Jada score greater than 3% is considered moderate risk. If this is the case, consider specialist referral to assess eligibility for a risk reducing agent. 2. If overall lifetime risk for the development of breast cancer is 20% or higher, the patient may qualify for future screening with alternating mammogram and breast MRI. Electronically signed and approved by: Eric Piña M.D. Radiologis
--- NOTE | 2023-03-14 15:23 | USB ---
Reason for Exam: Additional evaluation requested from prior study. Risk Values: Jada 5 year model risk: 1.2%. NCI Lifetime model risk: 2.5%. Technique: Method: Targeted. Findings: The upper outer quadrant of the right breast, the axilla of the right breast and the retroareolar of the right breast were scanned. Smoothly marginated hypoechoic mass at the right 11:00 position 4 cm from the nipple measuring 1.6 x 1.2 x 1.5 cm which likely reflects a fibroadenoma with internal calcifications. There is also a cyst in the right 10:00 position 9 cm from the nipple which measures 2 x 0.7 x 1.7 cm.. Overall Assessment: Probably benign, BI-RAD 3 Management: Diagnostic Breast Ultrasound of the right breast in 6 months. A clinical breast exam by your physician is recommended on an annual basis and results should be correlated with mammographic findings. This exam should not preclude additional follow-up of suspicious palpable abnormalities. Results were given to the patient verbally at the time of exam. Electronically signed and approved by: Eric Piña M.D. Radiologis
--- NOTE | 2023-03-14 18:25 | CT ---
EXAMINATION TYPE: CT thoracic spine wo/w con DATE OF EXAM: 03/14/2023 COMPARISON: Correlation CT chest 12/02/2019 HISTORY: 77-year-old female M89.8X8 mass of spine, Solitary pulmonary nodule. TECHNIQUE: Contiguous axial scanning of the thoracic spine performed without and with IV Contrast, pa tient injected with 80 mL of Isovue 300. Coronal/sagittal reconstructions performed. CT DLP: 1494.4 mGycm Automated exposure control for dose reduction was used. FINDINGS: Chest reported separately. There is an accentuated midthoracic kyphosis. T8 vertebral compression deformity with overall 70% ant erior height loss and 30% posterior height loss has a chronic appearance, likely partially visualized on the 07/09/2020 CT of the abdomen. No retropulsion into the ventral spinal canal. Mild to moderate degenerative disc disease throughout. Mild anterior wedging at T5 also has a chronic appearance with a anterior bridging endplate spondylos is from T4 through T7 levels. Degenerative trace grade 1 anterolisthesis T2-T3 and T3-T4. Otherwise, alignment is maintained. Moderate spondylotic change within the visualized cervical spine. There is a 1.0 cm wide by 0.5 cm AP by 0.8 cm craniocaudal calcified lesion within the left dorsal la teral aspect of the spinal canal opposite the T7 level. A benign lesion such as a meningioma is favor ed. It likely has some mild mass effect onto the underlying thoracic cord with mild overall canal dhara rowing. No abnormal enhancement seen within the spinal canal. On the right and left sides, no significant neuroforaminal stenosis seen. IMPRESSION: 1. CHEST REPORTED SEPARATELY. 2. 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 ADDITIONAL MILD ANTERIOR WEDGE DEFORMITY OF T5 ALSO HAS A CHRONIC APPEARANCE. NO RETROPULSION INTO TH E SPINAL CANAL. NO EVIDENT CANAL COMPROMISE BY CT. 3. MILD TO MODERATE MULTILEVEL DEGENERATIVE DISC DISEASE THROUGHOUT. DEGENERATIVE TRACE GRADE 1 ANTER OLISTHESIS T2-T3 AND T3-T4. 4. A 10 X 5 X 8 MM CALCIFICATION IN THE LEFT DORSOLATERAL SPINAL CANAL OPPOSITE THE T7 LEVEL. 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 FOLLOW-UP CAN BE PERFORMED TO ENSURE STABILITY. C ONSIDER MRI TO FURTHER CHARACTERIZE WELL.
== END | disposition home or self-care (01) ==
LOC: RADCTMAIN 11:18
PROVIDERS: ATTEND Family Medicine
DX: M89.8X8 Other specified disorders of bone, other site (principal); M48.54XA Collapsed vertebra, not elsewhere classified, thoracic region, initial encounter for fracture; R92.1 Mammographic calcification found on diagnostic imaging of breast; R91.1 Solitary pulmonary nodule; N63.20 Unspecified lump in the left breast, unspecified quadrant; J43.9 Emphysema, unspecified; I25.10 Atherosclerotic heart disease of native coronary artery without angina pectoris; E04.1 Nontoxic single thyroid nodule; J98.4 Other disorders of lung
CPT/HCPCS: 82565; 84520; 77066; 77062; 76642; 72130; 71260; 36415; Q9967